=== PATIENT | female | born 1990 | race Caucasian/White ===

== ENCOUNTER 2016-07-23 20:11 | Emergency (ER) | payer OTHER ==
[2016-07-23 20:31] VITALS: BP 137/85; PULSE 108; RESP 20; TEMP 98
[2016-07-23] MEDS ORDERED: DIPH,PERTUS(ACELL)TETVAC-LF 0.5 ML VIAL IM ONE (20:39)
[2016-07-23] MEDS ORDERED: AMOXIC-POT CLAV 875-125MG 1 EACH TAB PO STA (20:39)
--- NOTE | 2016-07-23 20:45 | ED ---
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 Patient states she was bit by a cat that has not had rabies vaccine up-to-date in 2 years. Patient does state that they are having the cat quarantined. Patient states that she is not up-to-date on her tetanus vaccine. Patient denies any significant pain. Patient denies any bleeding. Patient denies any numbness or tingling going down her fingers. Patient denies any redness or swelling from a site. - Related Data Home Medications Medication Instructions Recorded Confirmed Aviane Control 1 tab PO DAILY 09/29/15 10/04/15 Citalopram Hydrobromide [CeleXA] 40 mg PO DAILY 09/29/15 10/04/15 diphenhydrAMINE HCL [Benadryl] 25 - 50 mg PO DAILY PRN 09/29/15 10/04/15 methylPREDNISolone [Medrol Dose 4 mg PO DIRECTED 10/04/15 10/04/15 Pack] Previous Rx's Medication Instructions Recorded Meclizine [Antivert] 25 mg PO TID PRN #20 tab 09/29/15 Ciprofloxacin HCl [Cipro] 500 mg PO Q12HR #14 tablet 10/04/15 Amoxicillin/Potassium Clav 1 each PO Q12HR #20 tab 07/23/16 [Augmentin 875-125 Tablet] Allergies Allergy/AdvReac Type Severity Reaction Status Date / Time sulfamethoxazole AdvReac Nausea & Verified 07/23/16 20:31 [From Bactrim] Vomiting & Diarrhea trimethoprim [From Bactrim] AdvReac Nausea & Verified 07/23/16 20:31 Vomiting & Diarrhea Review of Systems ROS Statement: Those systems with pertinent positive or pertinent negative responses have been documented in the HPI. ROS Other: All systems not noted in ROS Statement are negative. Past Medical History Additional Past Medical History / Comment(s): migraines History of Any Multi-Drug Resistant Organisms: None Reported Past Surgical History: No Surgical Hx Reported Past Psychological History: Depression Smoking Status: Current every day smoker Past Alcohol Use History: None Reported Past Drug Use History: None Reported General Exam - General Exam Comments Initial Comments: Sitting in exam room, no acute distress. Limitations: no limitations General appearance: alert, in no apparent distress Head exam: Present: atraumatic, normocephalic, normal inspection Eye exam: Present: normal appearance ENT exam: Present: normal exam Respiratory exam: Absent: respiratory distress Extremities exam: Present: normal inspection Back exam: Present: normal inspection Neurological exam: Present: alert, oriented X3, CN II-XII intact, normal gait Psychiatric exam: Present: normal affect, normal mood Skin exam: Present: warm, dry, other (2 parallel superficial excoriations over right forearm from cat bite.) Course Vital Signs 07/23/16 20:27 Temperature 98.0 F Pulse Rate 108 H Respiratory 20 Rate Blood Pressure 137/85 O2 Sat by Pulse 99 Oximetry Medical Decision Making - Medical Decision Making Patient is a 26-year-old female presents emergency room for evaluation of Light. Patient does state that is being quarantined and evaluated for any changes in behavior. Patient updated on her tetanus vaccine and started on Augmentin. Advised patient to follow-up with her primary care provider. Advised patient that if cat does begin having abnormal behavior, she will need rabies vaccine. Patient states she understands everything that was discussed with her. Return parameters discussed. Case discussed Dr. Ocampo. Disposition Clinical Impression: Cat bite Disposition: HOME SELF-CARE Condition: Good Instructions: Animal Bite (ED) Additional Instructions: Clean area with antibacterial soap and water daily. Take antibiotic as directed. Please follow-up with any abnormal activity from cat. Please follow up with primary care provider in 1-2 days. If any new symptom arises or symptoms worsen, return to ER as soon as possible. Prescriptions: Amoxicillin/Potassium Clav [Augmentin 875-125 Tablet] 1 each PO Q12HR #20 tab Referrals: Sebastián Ibrahim DO [Primary Care Provider] - 1-2 days Time of Disposition: 20:43
== END 2016-07-23 21:08 | disposition home or self-care (01) ==
LOC: EC 20:11
DX: S50.811A Abrasion of right forearm, initial encounter (principal); F32.9 Major depressive disorder, single episode, unspecified; F17.200 Nicotine dependence, unspecified, uncomplicated; Z23 Encounter for immunization; Z88.2 Allergy status to sulfonamides; Z79.899 Other long term (current) drug therapy; W55.01XA Bitten by cat, initial encounter; Z79.3 Long term (current) use of hormonal contraceptives; Y99.0 Civilian activity done for income or pay; Y93.89 Activity, other specified; Y92.69 Other specified industrial and construction area as the place of occurrence of the external cause
CPT/HCPCS: 90471; 90715; 99283

== ENCOUNTER → 2016-09-10 | Outpatient (CLI) | payer OTHER ==
--- NOTE | 2016-09-10 10:40 | US ---
EXAMINATION TYPE: US pelvic complete DATE OF EXAM: 09/10/2016 COMPARISON: NONE CLINICAL HISTORY: N91.0 Amenorrhea,R10.2 Pelvic pain,R10.3 Lower abd pain all per order. TECHNIQUE: Transabdominal (TA) Date of LMP: end may, no reason not to have cycles EXAM MEASUREMENTS: Uterus: 8.3 x 3.2 x 4.1 cm Endometrial Stripe: 1.2 cm Right Ovary: 2.9 x 2.9 x 2.1 cm Left Ovary: 2.9 x 2.8 x 1.7 cm 1. Uterus: Anteverted wnl 2. Endometrium: measures 1.2 cm, no cycles for 3 months 3. Right Ovary: wnl 4. Left Ovary: wnl 5. Bilateral Adnexa: wnl 6. Posterior cul-de-sac: no free fluid Uterus is anteverted in shape. Endometrium measures 9-12 mm in thickness. No free fluid is seen in pe lvis. Oval hypoechoic adnexal lesions favor normal ovaries bilaterally, no significant follicles or c ystic change however is identified IMPRESSION: Suspected ovaries are normal in size, no discrete follicles are clearly seen on transabdo lamine imaging otherwise unremarkable study.
== END | disposition home or self-care (01) ==
LOC: RADUSWWP 10:08
PROVIDERS: ATTEND Family Medicine
DX: N91.2 Amenorrhea, unspecified (principal); R10.2 Pelvic and perineal pain; R10.30 Lower abdominal pain, unspecified
CPT/HCPCS: 76856

== ENCOUNTER 2016-11-21 16:08 | Observation (INO) | payer OTHER ==
--- NOTE | 2016-11-21 16:04 | CT ---
EXAMINATION TYPE: CT abdomen pelvis w con DATE OF EXAM: 11/21/2016 HISTORY: Mid pelvic pain with nausea CT DLP: 1263mGycm Automated Exposure Control for Dose Reduction was Utilized. CONTRAST: CT scan of the abdomen and pelvis is performed with IV Contrast, patient injected with 100 mL of Omni paque 300. COMPARISON: None. FINDINGS: LUNG BASES: No significant abnormality is appreciated. LIVER/GB: No significant abnormality is appreciated. PANCREAS: No significant abnormality is seen. SPLEEN: No significant abnormality is seen. ADRENALS: No significant abnormality is seen. KIDNEYS: No significant abnormality is seen. BOWEL: Appendix is mildly enlarged with minimal periappendiceal fat stranding changes. Appendix measu res up to 7 mm and is not contrast filled although contrast is seen within the adjacent cecum. No nerissa ctive ileus or adjacent focal fluid collection is present. UTERUS/ADNEXA: Right ovary measures approximately 3.3 x 2.3 cm containing a crenulated appearing kelly nant follicle, likely relating to a resolving hemorrhagic cyst. Left ovary measures 1.9 x 1.8 cm. End ometrium is also prominent with a questionable posterior fundal leiomyoma. LYMPH NODES: No greater than 1cm abdominal or pelvic lymph nodes are appreciated. OSSEOUS STRUCTURES: No significant abnormality is seen. IMPRESSION: 1. Mild enlargement of the appendix, which does not fill with contrast which may represent early appe ndicitis. 2. Probable resolving right adnexal hemorrhagic cyst although the endometrium appears heterogenous. C orrelate with serum beta hCG to ensure this finding does not represent early intrauterine . A Red message has been communicated to Kelly English via the [facility] system on 11/21/2016 3:52 PM, Message ID [id number]. Findings were discussed directly with Kelly English's CHESTER Cueva by Dr. Andrew at 16:00 on 11/21/16. T he patient was sent to the ER.
[2016-11-21] MEDS ORDERED: ONDANSETRON 4 MG/2 ML VIAL IVP STA (16:36)
[2016-11-21] MEDS ORDERED: SODIUM CHLORIDE 0.9% 1,000 ML IV STA (16:36)
[2016-11-21] MEDS ORDERED: HYDROmorphone 1 MG/ML 1 ML SYRINGE IVP STA (16:36)
--- NOTE | 2016-11-21 16:40 | ED ---
General Adult HPI - General Chief complaint: Abdominal Pain Time Seen by Provider: 11/21/16 16:31 Source: patient, RN notes reviewed Mode of arrival: ambulatory Limitations: no limitations - History of Present Illness Initial comments: Patient is a 26-year-old female who presents emergency room today with a chief complaint of having a positive CT for appendicitis. She states that she's been experiencing some lower abdominal pain for the last 3 days and had a CAT scan done outpatient. Assessment to some nausea at times. She denies any other complaints or associated symptoms. Patient denies any recent fever, chills, shortness of breath, chest pain, back pain, vomiting, numbness or tingling, dysuria or hematuria, constipation or diarrhea, headaches or visual changes, or any other complaints. - Related Data Home Medications Medication Instructions Recorded Confirmed diphenhydrAMINE HCL [Benadryl] 25 - 50 mg PO DAILY PRN 09/29/15 11/21/16 Acetaminophen Tab [Tylenol Tab] 1,000 mg PO Q6HR PRN 11/21/16 11/21/16 Citalopram Hydrobromide [CeleXA] 20 mg PO DAILY 11/21/16 11/21/16 Ibuprofen [Motrin] 400 mg PO Q6HR PRN 11/21/16 11/21/16 Allergies Allergy/AdvReac Type Severity Reaction Status Date / Time sulfamethoxazole AdvReac Nausea & Verified 11/21/16 17:33 [From Bactrim] Vomiting & Diarrhea trimethoprim [From Bactrim] AdvReac Nausea & Verified 11/21/16 17:33 Vomiting & Diarrhea Review of Systems ROS Statement: Those systems with pertinent positive or pertinent negative responses have been documented in the HPI. ROS Other: All systems not noted in ROS Statement are negative. Past Medical History Additional Past Medical History / Comment(s): migraines History of Any Multi-Drug Resistant Organisms: None Reported Past Surgical History: No Surgical Hx Reported Past Psychological History: Depression Smoking Status: Former smoker Past Alcohol Use History: Occasional Past Drug Use History: None Reported General Exam - General Exam Comments Initial Comments: General: The patient is awake and alert, in no distress, and does not appear acutely ill. Eye: Pupils are equal, round and reactive to light, extra-ocular movements are intact. No nystagmus. There is normal conjunctiva bilaterally. No signs of icterus. Ears, nose, mouth and throat: There are moist mucous membranes and no oral lesions. Neck: The neck is supple, there is no tenderness or JVD. Cardiovascular: There is a regular rate and rhythm. No murmur, rub or gallop is appreciated. Respiratory: Lungs are clear to auscultation, respirations are non-labored, breath sounds are equal. No wheezes, stridor, rales, or rhonchi. Gastrointestinal: Normal appearance abdomen. Normal bowel sounds. Abdomen soft on palpation. Patient does have tenderness periumbilical and right lower quadrant. No rebound tenderness. No Guarding. No CVA tenderness. Musculoskeletal: Normal ROM, no tenderness. Strength 5/5. Sensation intact. Pulses equal bilaterally 2+. Neurological: A&O x 3. CN II-XII intact, There are no obvious motor or sensory deficits. Coordination appears grossly intact. Speech is normal. Skin: Skin is warm and dry and no rashes or lesions are noted. Psychiatric: Cooperative, appropriate mood & affect, normal judgment. Limitations: no limitations Course Vital Signs 11/21/16 16:26 Temperature 98.4 F Pulse Rate 94 Respiratory 18 Rate Blood Pressure 133/83 O2 Sat by Pulse 98 Oximetry Medical Decision Making - Medical Decision Making CT shows evidence for early appendicitis. Patient will be admitted. Case was discussed with attending physician Dr. Ocampo. Patient at bedside and discussed with admitting physician Dr. Woodson. - Lab Data Result diagrams: 11/21/16 16:40 11/21/16 16:40 Lab Results 11/21/16 11/21/16 11/21/16 Range/Units 16:40 16:40 16:40 WBC 10.1 (3.8-10.6) k/uL RBC 4.74 (3.80-5.40) m/uL Hgb 14.7 (11.4-16.0) gm/dL Hct 44.2 (34.0-46.0) % MCV 93.3 (80.0-100.0) fL MCH 30.9 (25.0-35.0) pg MCHC 33.1 (31.0-37.0) g/dL RDW 14.1 (11.5-15.5) % Plt Count 240 (150-450) k/uL Neutrophils % 61 % Lymphocytes % 27 % Monocytes % 6 % Eosinophils % 3 % Basophils % 1 % Neutrophils # 6.2 (1.3-7.7) k/uL Lymphocytes # 2.7 (1.0-4.8) k/uL Monocytes # 0.6 (0-1.0) k/uL Eosinophils # 0.3 (0-0.7) k/uL Basophils # 0.1 (0-0.2) k/uL Sodium 137 (137-145) mmol/L Potassium 4.4 (3.5-5.1) mmol/L Chloride 104 (98-107) mmol/L Carbon Dioxide 23 (22-30) mmol/L Anion Gap 10 mmol/L BUN 7 (7-17) mg/dL Creatinine 0.80 (0.52-1.04) mg/dL Est GFR (MDRD) Af Amer >60 (>60 ml/min/1.73 sqM) Est GFR (MDRD) Non-Af >60 (>60 ml/min/1.73 sqM) Glucose 91 (74-99) mg/dL Calcium 9.7 (8.4-10.2) mg/dL Total Bilirubin 0.2 (0.2-1.3) mg/dL AST 40 H (14-36) U/L ALT 107 H (9-52) U/L Alkaline Phosphatase 94 (38-126) U/L Total Protein 7.1 (6.3-8.2) g/dL Albumin 4.3 (3.5-5.0) g/dL HCG, Qual Not Detected Urine Color Urine Appearance (Clear) Urine pH (5.0-8.0) Ur Specific [place] (1.001-1.035) Urine Protein (Negative) Urine Glucose (UA) (Negative) Urine Ketones (Negative) Urine Blood (Negative) Urine Nitrite (Negative) Urine Bilirubin (Negative) Urine Urobilinogen (<2.0) mg/dL Ur Leukocyte Esterase (Negative) 11/21/16 Range/Units 17:54 WBC (3.8-10.6) k/uL RBC (3.80-5.40) m/uL Hgb (11.4-16.0) gm/dL Hct (34.0-46.0) % MCV (80.0-100.0) fL MCH (25.0-35.0) pg MCHC (31.0-37.0) g/dL RDW (11.5-15.5) % Plt Count (150-450) k/uL Neutrophils % % Lymphocytes % % Monocytes % % Eosinophils % % Basophils % % Neutrophils # (1.3-7.7) k/uL Lymphocytes # (1.0-4.8) k/uL Monocytes # (0-1.0) k/uL Eosinophils # (0-0.7) k/uL Basophils # (0-0.2) k/uL Sodium (137-145) mmol/L Potassium (3.5-5.1) mmol/L Chloride (98-107) mmol/L Carbon Dioxide (22-30) mmol/L Anion Gap mmol/L BUN (7-17) mg/dL Creatinine (0.52-1.04) mg/dL Est GFR (MDRD) Af Amer (>60 ml/min/1.73 sqM) Est GFR (MDRD) Non-Af (>60 ml/min/1.73 sqM) Glucose (74-99) mg/dL Calcium (8.4-10.2) mg/dL Total Bilirubin (0.2-1.3) mg/dL AST (14-36) U/L ALT (9-52) U/L Alkaline Phosphatase (38-126) U/L Total Protein (6.3-8.2) g/dL Albumin (3.5-5.0) g/dL HCG, Qual Urine Color Colorless Urine Appearance Clear (Clear) Urine pH 6.5 (5.0-8.0) Ur Specific [place] 1.032 (1.001-1.035) Urine Protein Negative (Negative) Urine Glucose (UA) Negative (Negative) Urine Ketones Negative (Negative) Urine Blood Negative (Negative) Urine Nitrite Negative (Negative) Urine Bilirubin Negative (Negative) Urine Urobilinogen <2.0 (<2.0) mg/dL Ur Leukocyte Esterase Negative (Negative) Disposition Clinical Impression: Acute appendicitis Disposition: ADMITTED IP TO THIS HOSP Condition: Stable Referrals: Sebastián Ibrahim DO [Primary Care Provider] - 1-2 days Time of Disposition: 18:28
[2016-11-21 16:56] LABS: Basophils # (A) 0.1 k/uL (0-0.2); Basophils % (A) 1 %; CH 32.1; CHCM 34.6; Eosinophils # (A) 0.3 k/uL (0-0.7); Eosinophils % (A) 3 %; HCT 44.2 % (34.0-46.0); HDW 2.31; HGB 14.7 gm/dL (11.4-16.0); Luc % (Auto) 2; Lymphocytes # (A) 2.7 k/uL (1.0-4.8); Lymphocytes % (A) 27 %; MCH 30.9 pg (25.0-35.0); MCHC 33.1 g/dL (31.0-37.0); MCV 93.3 fL (80.0-100.0); Mean Platelet Volume 7.9; Monocytes # (A) 0.6 k/uL (0-1.0); Monocytes % (A) 6 %; Neutrophils # (A) 6.2 k/uL (1.3-7.7); Neutrophils % (A) 61 %; RBC 4.74 m/uL (3.80-5.40); RDW 14.1 % (11.5-15.5); WBC 10.1 k/uL (3.8-10.6); WBC (Perox) 9.97
[2016-11-21 17:04] LABS: ALT 107 U/L (9-52); AST 40 U/L (14-36); Alkaline Phosphatase 94 U/L (38-126); Anion Gap 10 mmol/L; Blood Urea Nitrogen 7 mg/dL (7-17); Calcium 9.7 mg/dL (8.4-10.2); Carbon Dioxide 23 mmol/L (22-30); Chloride 104 mmol/L (98-107); Glucose 91 mg/dL (74-99); Non-African American GFR(MDRD) >60 (>60 ml/min/1.73 sqM); Potassium 4.4 mmol/L (3.5-5.1); Sodium 137 mmol/L (137-145); Total Bilirubin 0.2 mg/dL (0.2-1.3); Total Protein 7.1 g/dL (6.3-8.2)
[2016-11-21 18:04] LABS: Appearance,Urine Clear (Clear); Bilirubin,Urine Negative (Negative); Glucose,Urine (UA) Negative (Negative); Ketones,Urine Negative (Negative); Leukocyte Esterase,Urine Negative (Negative); Nitrite,Urine Negative (Negative); PH, Urine 6.5 (5.0-8.0); Protein,Urine Negative (Negative); Specific Gravity,Urine 1.032 (1.001-1.035); UA Billing (MACRO vs. MICRO) CHEM; Urobilinogen,Urine <2.0 mg/dL (<2.0)
[2016-11-21] MEDS ORDERED: HYDROmorphone 1 MG/ML 1 ML SYRINGE IV PRN (18:29)
[2016-11-21] MEDS ORDERED: ONDANSETRON 4 MG/2 ML VIAL IVP PRN (18:29)
[2016-11-21] MEDS ORDERED: NALOXONE 0.4 MG/ML 1 ML VIAL IV PRN ×2 (18:29→22:29)
--- NOTE | 2016-11-21 20:02 | P.GSHP ---
History of Present Illness H&P Date: 11/21/16 Chief Complaint: Right lower quadrant abdominal pain A 26-year-old female presents to the emergency department complaining of abdominal pain. She states that the pain started in the periumbilical area and has moved to her right lower quadrant. She states this started about a day and a half ago. She states that she has had decreased appetite and has had some nausea. She denies any vomiting. She denies any change in bowel function. She states she has never had this pain previously. She denies fevers, chills, chest pain or shortness of breath. She currently has no additional complaints. - Gastrointestinal Gastrointestinal: Reports abdominal pain, Reports nausea Past Medical History Additional Past Medical History / Comment(s): migraines History of Any Multi-Drug Resistant Organisms: None Reported Past Surgical History: No Surgical Hx Reported Past Psychological History: Depression Smoking Status: Former smoker Past Alcohol Use History: Occasional Past Drug Use History: None Reported Medications and Allergies Home Medications Medication Instructions Recorded Confirmed Type diphenhydrAMINE HCL [Benadryl] 25 - 50 mg PO DAILY PRN 09/29/15 11/21/16 History Acetaminophen Tab [Tylenol Tab] 1,000 mg PO Q6HR PRN 11/21/16 11/21/16 History Citalopram Hydrobromide [CeleXA] 20 mg PO DAILY 11/21/16 11/21/16 History Ibuprofen [Motrin] 400 mg PO Q6HR PRN 11/21/16 11/21/16 History Allergies Allergy/AdvReac Type Severity Reaction Status Date / Time sulfamethoxazole AdvReac Nausea & Verified 11/21/16 17:33 [From Bactrim] Vomiting & Diarrhea trimethoprim [From Bactrim] AdvReac Nausea & Verified 11/21/16 17:33 Vomiting & Diarrhea Surgical - Exam Osteopathic Statement: *. No significant issues noted on an osteopathic structural exam other than those noted in the History and Physical/Consult. Vital Signs Temp Pulse Resp BP Pulse Ox 98.4 F 94 18 133/83 98 11/21/16 16:26 11/21/16 16:26 11/21/16 16:26 11/21/16 16:26 11/21/16 16:26 - General well developed, no distress - Eyes PERRL, normal ocular movement - ENT normal mucosa, no hearing loss - Neck no masses, no bruits, trachea midline, no lymphadectomy - Respiratory normal respiratory effort - Cardiovascular Rhythm: regular Heart Sounds: normal: S1, S2 - Abdomen Abdomen: soft, tender, no guarding, no rigid, no rebound, no distended - Integumentary no rash - Neurologic normal coordination, normal sensation - Musculoskeletal normal gait, normal posture - Psychiatric oriented to time, oriented to person, oriented to place Results - Labs 11/21/16 16:40 11/21/16 16:40 Abnormal Lab Results - Last 24 Hours (Table) 11/21/16 Range/Units 16:40 AST 40 H (14-36) U/L ALT 107 H (9-52) U/L Diabetes panel 11/21/16 Range/Units 16:40 Sodium 137 (137-145) mmol/L Potassium 4.4 (3.5-5.1) mmol/L Chloride 104 (98-107) mmol/L Carbon Dioxide 23 (22-30) mmol/L BUN 7 (7-17) mg/dL Creatinine 0.80 (0.52-1.04) mg/dL Glucose 91 (74-99) mg/dL Calcium 9.7 (8.4-10.2) mg/dL AST 40 H (14-36) U/L ALT 107 H (9-52) U/L Alkaline Phosphatase 94 (38-126) U/L Total Protein 7.1 (6.3-8.2) g/dL Albumin 4.3 (3.5-5.0) g/dL Calcium panel 11/21/16 Range/Units 16:40 Calcium 9.7 (8.4-10.2) mg/dL Albumin 4.3 (3.5-5.0) g/dL Pituitary panel 11/21/16 Range/Units 16:40 Sodium 137 (137-145) mmol/L Potassium 4.4 (3.5-5.1) mmol/L Chloride 104 (98-107) mmol/L Carbon Dioxide 23 (22-30) mmol/L BUN 7 (7-17) mg/dL Creatinine 0.80 (0.52-1.04) mg/dL Glucose 91 (74-99) mg/dL Calcium 9.7 (8.4-10.2) mg/dL Adrenal panel 11/21/16 Range/Units 16:40 Sodium 137 (137-145) mmol/L Potassium 4.4 (3.5-5.1) mmol/L Chloride 104 (98-107) mmol/L Carbon Dioxide 23 (22-30) mmol/L BUN 7 (7-17) mg/dL Creatinine 0.80 (0.52-1.04) mg/dL Glucose 91 (74-99) mg/dL Calcium 9.7 (8.4-10.2) mg/dL Total Bilirubin 0.2 (0.2-1.3) mg/dL AST 40 H (14-36) U/L ALT 107 H (9-52) U/L Alkaline Phosphatase 94 (38-126) U/L Total Protein 7.1 (6.3-8.2) g/dL Albumin 4.3 (3.5-5.0) g/dL - Imaging CT scan - abdomen: report reviewed (Early Appendicitis and questionable hemorrhagic cysts rupture of the ovary) Assessment and Plan (1) Acute appendicitis Status: Acute Plan: 26-year-old female with acute appendicitis - Plan for or for laparoscopic appendectomy - Will provide perioperative antibiotics - Pain control - Keep nothing by mouth at this time - Admitted to my service - Further recommendations after surgery
[2016-11-21] MEDS ORDERED: IV FLUID CONTINUATION 1,000 ML IV ONE (20:11)
[2016-11-21] MEDS ORDERED: MIDAZOLAM 2 MG/2 ML VIAL ONE (20:14)
[2016-11-21] MEDS ORDERED: GLYCOPYRROLATE 0.2 MG/ML 2 ML VIAL ONE (20:14)
[2016-11-21] MEDS ORDERED: NEOSTIGMINE 1 MG/ML 10 ML VIAL ONE (20:14)
[2016-11-21] MEDS ORDERED: fentaNYL (PF) 50 MCG/ML 2 ML AMP ONE (20:14)
[2016-11-21] MEDS ORDERED: ROCURONIUM BROMIDE 10 MG/ML 10 ML VIAL IV ONE (20:14)
[2016-11-21] MEDS ORDERED: ONDANSETRON 4 MG/2 ML VIAL ONE (20:14)
[2016-11-21] MEDS ORDERED: LIDOCAINE 1% INJ 10MG/ML (20 ML MDV) ONE (20:14)
[2016-11-21] MEDS ORDERED: HYDROmorphone (PF) 1 MG/ML ONE (20:14)
[2016-11-21] MEDS ORDERED: SUCCINYLCHOLINE CHLORIDE 100 MG/5 ML SYR IV ONE (20:14)
[2016-11-21] MEDS ORDERED: PROPOFOL 10 MG/ML 20 ML VIAL IV ONE (20:14)
[2016-11-21] MEDS: metroNIDAZOLE-NS PMX 500 MG in SALINE 1 100ML.BAG IVPB SCH (20:30)
[2016-11-21] MEDS ORDERED: BUPIVACAINE (PF) 0.25% 30 ML VIAL SQ ONE ×2 (20:31)
[2016-11-21] MEDS ORDERED: LACTATED RINGERS 1,000 ML IV ONE ×2 (20:52→22:29)
[2016-11-21] MEDS ORDERED: PROMETHAZINE INJ 25 MG/ML 1 ML VIAL IVPB ONE (21:19)
--- NOTE | 2016-11-21 21:22 | P.OP ---
Date of Procedure: 11/21/16 Preoperative Diagnosis: Acute appendicitis Postoperative Diagnosis: Acute appendicitis Procedure(s) Performed: Laparoscopic appendectomy Anesthesia: DELONTE Surgeon: Maia Woodson Estimated Blood Loss (ml): 5 Pathology: other (Appendix) Condition: stable Disposition: observation Indications for Procedure: 26-year-old female presented to the emergency department complaining of abdominal pain that began in her periumbilical area and shifted to her right lower quadrant. On workup computed tomography scan showed a early appendicitis with a possible ovarian cyst rupture. Secondary to these findings. The patient was explained a procedure for laparoscopic appendectomy. The patient was explained the risks, benefits, alternatives to the procedure. She provided consent prior to attending the operating suite Operative Findings: Inflamed appendix and hemorrhagic fluid within the pelvis Description of Procedure: The patient was brought into the operating suite placed in supine position on the operating table. Sedation was provided by anesthesia and the patient underwent endotracheal intubation. The patient was then prepped and draped in regular sterile fashion. A supraumbilical incision was made dissection was carried to the fascia the fascia was incised and a 15 mm trocar was placed. Pneumoperitoneum was then achieved. At this point an additional 5 mm port was placed in the left lower quadrant and the subxiphoid position. The patient was then placed in position and the appendix was visible. The appendix was clearly inflamed. A window was created between the mesoappendix and the base of the appendix. A LigaSure device was used to dissect the mesoappendix from the appendix. A 45 mm purple load Covidien Endo CECILIA stapler was then fired across the base of the appendix. The appendix was then placed in a Endo Catch bag and removed from the abdomen. Examination was then made in the pelvis and hemorrhagic fluid was noted. Irrigation was then placed within the pelvis and suctioned free. The appendiceal staple line was then reexamined and hemostasis was noted to be maintained. A Jose G-Carlos device was used to close the 15 mm trocar site with an 0 Vicryl suture. Pneumoperitoneum was then released all trochars removed from the abdomen and all skin incisions were closed with 40 Caprosyn suture. Dermabond was placed. The patient was awakened in the operating suite and taken to postanesthesia care unit in stable condition.
[2016-11-21] MEDS ORDERED: METOCLOPRAMIDE 5 MG/ML 2 ML VIAL IVP ONE (21:23)
[2016-11-21] MEDS: HYDROmorphone 1 MG/ML 1 ML SYRINGE IVP ONE ×2 (21:33→21:38)
[2016-11-21] MEDS ORDERED: KETOROLAC 30 MG/ML 1 ML VIAL IVP ONE (21:33)
[2016-11-21] MEDS ORDERED: HYDROcodone/APAP 5-325MG 1 EACH TAB PO PRN (22:29)
[2016-11-22] MEDS: HYDROmorphone 1 MG/ML 1 ML SYRINGE IVP PRN ×2 (02:13→06:25)
[2016-11-22 07:51] LABS: Basophils # (A) 0.1 k/uL (0-0.2); Basophils % (A) 1 %; CH 31.8; CHCM 33.4; Eosinophils # (A) 0.2 k/uL (0-0.7); Eosinophils % (A) 2 %; HCT 43.5 % (34.0-46.0); HDW 2.29; HGB 13.9 gm/dL (11.4-16.0); Luc # (Auto) 0.15; Luc % (Auto) 2; Lymphocytes # (A) 2.6 k/uL (1.0-4.8); Lymphocytes % (A) 27 %; MCH 30.7 pg (25.0-35.0); MCHC 32.1 g/dL (31.0-37.0); MCV 95.7 fL (80.0-100.0); Mean Platelet Volume 8.2; Monocytes # (A) 0.7 k/uL (0-1.0); Monocytes % (A) 7 %; Neutrophils % (A) 62 %; RBC 4.55 m/uL (3.80-5.40); RDW 13.5 % (11.5-15.5); WBC 9.7 k/uL (3.8-10.6); WBC (Perox) 9.34
[2016-11-22] MEDS: metroNIDAZOLE-NS PMX 500 MG in SALINE 1 100ML.BAG IVPB SCH (07:58)
[2016-11-22 08:11] LABS: Anion Gap 8 mmol/L; Blood Urea Nitrogen 6 mg/dL (7-17); Calcium 8.5 mg/dL (8.4-10.2); Carbon Dioxide 23 mmol/L (22-30); Chloride 107 mmol/L (98-107); Glucose 82 mg/dL (74-99); Non-African American GFR(MDRD) >60 (>60 ml/min/1.73 sqM); Potassium 3.8 mmol/L (3.5-5.1); Sodium 138 mmol/L (137-145)
[2016-11-22] MEDS ORDERED: FAMOTIDINE 20 MG TAB PO SCH (09:00)
[2016-11-22] MEDS ORDERED: DOCUSATE 100 MG CAP PO SCH (09:00)
--- NOTE | 2016-11-22 11:52 | P.DS ---
Providers Date of admission: 11/21/16 19:29 Expected date of discharge: 11/22/16 Attending physician: Maia Woodson DO [facility] Course: 26-year-old presented to the emergency room on the day of admission to be evaluated for right lower quadrant abdominal pain. Patient stated the pain started in the Umbilical area radiated to the right lower quadrant. Patient stated the onset of the pain was a day and a half prior. Patient stated she had decreased appetite felt nauseated did not actually vomit. Patient stated that she did have a bowel movement on the day of admission to the emergency room. Patient states she had not had any prior episodes of similar abdominal pain patient was admitted to surgical service. The emergency room patient did have a computed tomography scan of the abdomen pelvis it did show early appendicitis possible ovarian cyst rupture. Surgical service advised the patient to proceed with a laparoscopic appendectomy in which the patient elected to proceed. on November 21 patient underwent a left scapular appendectomy for acute appendicitis. Operative findings showed inflamed appendix and hemorrhagic fluid within the pelvis . There were no postop complications. On the day of discharge patient was able to ambulate in the hallway tolerated diet afebrile the white count on discharge was 9.7 hemoglobin 13.9 electrolytes within normal limits as was felt to be hemodynamically stable and appropriate proceed with a discharge to home Impression discharge diagnoses Present on admission umbilical area pain radiating to the right lower quadrant suspect due to acute appendicitis CAT scan abdomen and pelvis suspected early appendicitis possible ovarian cyst rupture Status post November 21 laparoscopic appendectomy for acute appendicitis Operative findings inflamed appendix and hemorrhagic fluid within the pelvis The above impression and plan of care have been discussed and directed by signing physician. Trinidad Navarrete nurse practitioner acting as scribe for signing physician. Patient Condition at Discharge: Stable Plan - Discharge Summary New Discharge Prescriptions: New HYDROcodone/APAP 5-325MG [[place] 5-325] 1 tab PO Q4HR PRN #15 tab PRN Reason: Muscle Pain Docusate [Colace] 100 mg PO DAILY PRN #30 capsule PRN Reason: Constipation Continue diphenhydrAMINE HCL [Benadryl] 25 - 50 mg PO DAILY PRN PRN Reason: Allergy Symptoms Ibuprofen [Motrin] 400 mg PO Q6HR PRN PRN Reason: Pain Or Fever > 100.5 Acetaminophen Tab [Tylenol] 1,000 mg PO Q6HR PRN PRN Reason: Pain Or Fever > 100.5 Citalopram Hydrobromide [CeleXA] 20 mg PO DAILY Discharge Medication List diphenhydrAMINE HCL [Benadryl] 25 - 50 mg PO DAILY PRN 09/29/15 [History] Acetaminophen Tab [Tylenol] 1,000 mg PO Q6HR PRN 11/21/16 [History] Citalopram Hydrobromide [CeleXA] 20 mg PO DAILY 11/21/16 [History] Ibuprofen [Motrin] 400 mg PO Q6HR PRN 11/21/16 [History] Docusate [Colace] 100 mg PO DAILY PRN #30 capsule 11/22/16 [Rx] HYDROcodone/APAP 5-325MG [[place] 5-325] 1 tab PO Q4HR PRN #15 tab 11/22/16 [Rx] Follow up Appointment(s)/Referral(s): Sebastián Ibrahim DO [Primary Care Provider] - 1-2 days Activity/Diet/Wound Care/Special Instructions: No lifting heavier than a milk jug No tub bath Shower daily Notified the attending of any fever chills abdominal pain nausea vomiting Return to work after seen in a follow-up visit with surgical service Discharge Disposition: HOME SELF-CARE
[2016-11-22 11:53] VITALS: BP 109/65; PULSE 98; RESP 18; TEMP 98.2
[2016-11-22] MEDS ORDERED: metroNIDAZOLE 500 MG TAB PO SCH (16:00)
== END 2016-11-22 14:58 | disposition home or self-care (01) ==
LOC: EC 16:08 → 6PED 19:29
PROVIDERS: ADMIT Surgery; ATTEND Surgery
DX: K35.80 Unspecified acute appendicitis (principal); F32.9 Major depressive disorder, single episode, unspecified; R10.31 Right lower quadrant pain; Z79.899 Other long term (current) drug therapy; Z88.1 Allergy status to other antibiotic agents; Z88.2 Allergy status to sulfonamides; Z87.891 Personal history of nicotine dependence
CPT/HCPCS: 36415; 74177; 80048; 80053; 81003; 84703; 85025; 88304; 96361; 96374; 96375; 99285

== ENCOUNTER → 2016-11-21 | Outpatient (CLI) | payer OTHER ==
--- NOTE | 2016-11-21 11:48 | XR ---
EXAMINATION TYPE: XR abdomen 2V DATE OF EXAM: 11/21/2016 11:27 AM CLINICAL HISTORY: Abdominal pain for 3 days TECHNIQUE: Single supine KUB image of the abdomen is obtained. COMPARISON: None. FINDINGS: Single mildly enlarged loop of small bowel seen within the left mid abdomen. Remainder the bowel is unremarkable with no differential air-fluid levels. Moderate amount of stool seen throughout the ascending colon and hepatic flexure as well as within the rectum. There is no visceromegaly, pneumoperitoneum, or abnormal calcification appreciated. The lung bases ar e clear and the osseous structures are intact. IMPRESSION: Single mildly enlarged loop of small bowel which may relate to ileus. Moderate amount of retained sto ol within the ascending colon, hepatic flexure and rectum.
== END | disposition home or self-care (01) ==
LOC: RADXRYALE 11:11
PROVIDERS: ATTEND Physician Assistant Medical
DX: K63.89 Other specified diseases of intestine (principal); K56.41 Fecal impaction
CPT/HCPCS: 74020

== ENCOUNTER 2016-12-06 17:13 | Emergency (ER) | payer OTHER ==
[2016-12-06 17:29] VITALS: TEMP 97.6
[2016-12-06] MEDS ORDERED: SODIUM CHLORIDE 0.9% 1,000 ML IV ONE (17:53)
[2016-12-06] MEDS ORDERED: ONDANSETRON 4 MG/2 ML VIAL IVP STA (17:53)
[2016-12-06] MEDS ORDERED: HYDROmorphone 1 MG/ML 1 ML SYRINGE IVP STA (17:53)
--- NOTE | 2016-12-06 17:54 | ED ---
Abdominal Pain HPI - General Chief Complaint: Abdominal Pain Stated Complaint: abd pain/N & V Time Seen by Provider: 12/06/16 17:31 Source: patient Mode of arrival: ambulatory Limitations: no limitations - History of Present Illness Initial Comments: 26-year-old female patient presents to emergency department today with complaints of periumbilical abdominal pain. Patient is status post appendectomy and 11/21/[address] Woodson. She states that she had her one- week postop appointments and was doing well, states that she was cleared to return to work. States that she did go to work Friday, Friday, and Friday on light duty. She states that yesterday she began to have pain surrounding her umbilical incision. She states that today the pain has worsened and she has developed nausea and vomiting. Patient states she has vomited 3-4 times. She states that the pain is sharp and stabbing and radiates through to her back. She denies any fever or chills with this. She states she is having normal bowel movements, she denies any hematochezia or melena. She denies any hematuria, dysuria, urinary frequency, or urinary urgency. Patient denies any recent rash, shortness breath, chest pain, diarrhea, constipation, back pain, numbness, tingling, dizziness, weakness, hematuria, dysuria, urinary urgency, urinary frequency, headache, visual changes, or any other complaints. - Related Data Home Medications Medication Instructions Recorded Confirmed diphenhydrAMINE HCL [Benadryl] 25 mg PO DAILY PRN 09/29/15 12/06/16 Ibuprofen [Motrin] 400 mg PO Q6HR PRN 11/21/16 12/06/16 Citalopram Hydrobromide [CeleXA] 40 mg PO DAILY 12/06/16 12/06/16 Previous Rx's Medication Instructions Recorded Ondansetron [Zofran ODT] 4 mg PO Q8HR PRN #10 tab 12/06/16 Allergies Allergy/AdvReac Type Severity Reaction Status Date / Time sulfamethoxazole AdvReac Nausea & Verified 12/06/16 17:53 [From Bactrim] Vomiting & Diarrhea trimethoprim [From Bactrim] AdvReac Nausea & Verified 12/06/16 17:53 Vomiting & Diarrhea Review of Systems ROS Statement: Those systems with pertinent positive or pertinent negative responses have been documented in the HPI. ROS Other: All systems not noted in ROS Statement are negative. Past Medical History Additional Past Medical History / Comment(s): migraines History of Any Multi-Drug Resistant Organisms: MRSA Date of last positivie culture/infection: 2012 MDRO Source:: bilateral inner thighs Past Surgical History: Adenoidectomy Past Anesthesia/Blood Transfusion Reactions: No Reported Reaction Past Psychological History: Depression Smoking Status: Former smoker Past Alcohol Use History: Occasional Past Drug Use History: None Reported - Past Family History Mother Family Medical History: No Reported History General Exam Limitations: no limitations General appearance: alert, in no apparent distress, other (this is a well- developed, well-nourished adult female patient of acute distress. Vital signs upon presentation are temperature 97.6F, pulse 97, respirations 18, blood pressure 136/84, pulse ox 100% on room air.) Eye exam: Present: normal appearance, PERRL, EOMI. Absent: scleral icterus, conjunctival injection, periorbital swelling Respiratory exam: Present: normal lung sounds bilaterally. Absent: respiratory distress, wheezes, rales, rhonchi, stridor Cardiovascular Exam: Present: regular rate, normal rhythm, normal heart sounds. Absent: systolic murmur, diastolic murmur, rubs, gallop, clicks GI/Abdominal exam: Present: soft, tenderness (Generalized abdominal tenderness, worse in the right lower quadrant, periumbilically, and left lower quadrant.), guarding, normal bowel sounds. Absent: distended, rebound, rigid Back exam: Present: normal inspection. Absent: CVA tenderness (R), CVA tenderness (L) Neurological exam: Present: alert, oriented X3, CN II-XII intact Psychiatric exam: Present: normal affect, normal mood Skin exam: Present: warm, dry, intact, normal color. Absent: rash Course Vital Signs 12/06/16 17:25 Temperature 97.6 F Pulse Rate 97 Respiratory 18 Rate Blood Pressure 136/84 O2 Sat by Pulse 100 Oximetry Medical Decision Making - Medical Decision Making 26-year-old female patient presented to emergency department today for evaluation of periumbilical abdominal pain, patient is status post appendectomy on 11/21/2016. Physical exam did reveal some mild diffuse abdominal tenderness. CT of the abdomen and pelvis was negative for any acute process. Patient is feeling better after receiving some nausea medication and pain medication here in the department. Labs are overall unremarkable. She will be discharged home to follow-up with her surgeon in the next 1-2 days. She is instructed to return here immediately for any new, worsening, or concerning symptoms. She verbalizes understanding and agrees with this plan. - Lab Data Result diagrams: 12/06/16 18:15 12/06/16 18:15 Lab Results 12/06/16 12/06/16 12/06/16 Range/Units 18:15 18:15 18:15 WBC 10.0 (3.8-10.6) k/uL RBC 4.43 (3.80-5.40) m/uL Hgb 13.8 (11.4-16.0) gm/dL Hct 41.4 (34.0-46.0) % MCV 93.6 (80.0-100.0) fL MCH 31.3 (25.0-35.0) pg MCHC 33.4 (31.0-37.0) g/dL RDW 13.6 (11.5-15.5) % Plt Count 267 (150-450) k/uL Neutrophils % 57 % Lymphocytes % 30 % Monocytes % 5 % Eosinophils % 6 % Basophils % 1 % Neutrophils # 5.6 (1.3-7.7) k/uL Lymphocytes # 3.0 (1.0-4.8) k/uL Monocytes # 0.5 (0-1.0) k/uL Eosinophils # 0.6 (0-0.7) k/uL Basophils # 0.1 (0-0.2) k/uL Sodium 138 (137-145) mmol/L Potassium 4.6 (3.5-5.1) mmol/L Chloride 104 (98-107) mmol/L Carbon Dioxide 22 (22-30) mmol/L Anion Gap 12 mmol/L BUN 15 (7-17) mg/dL Creatinine 0.70 (0.52-1.04) mg/dL Est GFR (MDRD) Af Amer >60 (>60 ml/min/1.73 sqM) Est GFR (MDRD) Non-Af >60 (>60 ml/min/1.73 sqM) Glucose 98 (74-99) mg/dL Plasma Lactic Acid Rishi 1.1 (0.7-2.0) mmol/L Calcium 9.9 (8.4-10.2) mg/dL Total Bilirubin 0.5 (0.2-1.3) mg/dL AST 42 H (14-36) U/L ALT 182 H (9-52) U/L Alkaline Phosphatase 196 H (38-126) U/L Total Protein 8.0 (6.3-8.2) g/dL Albumin 4.6 (3.5-5.0) g/dL Amylase 56 (30-110) U/L Lipase 99 (23-300) U/L Urine Color Urine Appearance (Clear) Urine pH (5.0-8.0) Ur Specific [place] (1.001-1.035) Urine Protein (Negative) Urine Glucose (UA) (Negative) Urine Ketones (Negative) Urine Blood (Negative) Urine Nitrite (Negative) Urine Bilirubin (Negative) Urine Urobilinogen (<2.0) mg/dL Ur Leukocyte Esterase (Negative) 12/06/16 Range/Units 18:20 WBC (3.8-10.6) k/uL RBC (3.80-5.40) m/uL Hgb (11.4-16.0) gm/dL Hct (34.0-46.0) % MCV (80.0-100.0) fL MCH (25.0-35.0) pg MCHC (31.0-37.0) g/dL RDW (11.5-15.5) % Plt Count (150-450) k/uL Neutrophils % % Lymphocytes % % Monocytes % % Eosinophils % % Basophils % % Neutrophils # (1.3-7.7) k/uL Lymphocytes # (1.0-4.8) k/uL Monocytes # (0-1.0) k/uL Eosinophils # (0-0.7) k/uL Basophils # (0-0.2) k/uL Sodium (137-145) mmol/L Potassium (3.5-5.1) mmol/L Chloride (98-107) mmol/L Carbon Dioxide (22-30) mmol/L Anion Gap mmol/L BUN (7-17) mg/dL Creatinine (0.52-1.04) mg/dL Est GFR (MDRD) Af Amer (>60 ml/min/1.73 sqM) Est GFR (MDRD) Non-Af (>60 ml/min/1.73 sqM) Glucose (74-99) mg/dL Plasma Lactic Acid Rishi (0.7-2.0) mmol/L Calcium (8.4-10.2) mg/dL Total Bilirubin (0.2-1.3) mg/dL AST (14-36) U/L ALT (9-52) U/L Alkaline Phosphatase (38-126) U/L Total Protein (6.3-8.2) g/dL Albumin (3.5-5.0) g/dL Amylase (30-110) U/L Lipase (23-300) U/L Urine Color Yellow Urine Appearance Clear (Clear) Urine pH 5.5 (5.0-8.0) Ur Specific [place] 1.026 (1.001-1.035) Urine Protein Negative (Negative) Urine Glucose (UA) Negative (Negative) Urine Ketones Negative (Negative) Urine Blood Negative (Negative) Urine Nitrite Negative (Negative) Urine Bilirubin Negative (Negative) Urine Urobilinogen <2.0 (<2.0) mg/dL Ur Leukocyte Esterase Negative (Negative) - Radiology Data Radiology results: report reviewed, image reviewed CT of the abdomen and pelvis with contrast report reviewed in its entirety. Impression by Dr. Serrano shows appendectomy clips noted. No sign of acute abdomen and pelvis. I do not see across her abdominal pain. Disposition Clinical Impression: Postoperative abdominal pain Disposition: HOME SELF-CARE Condition: Good Instructions: Abdominal Pain (ED) Additional Instructions: Increase fluids. Take medications as directed. Follow-up with your primary care physician or surgeon for recheck in 1-2 days. Return here immediately for any new, worsening, or concerning symptoms. Prescriptions: Ondansetron [Zofran ODT] 4 mg PO Q8HR PRN #10 tab PRN Reason: Nausea Referrals: Sebastián Ibrahim DO [Primary Care Provider] - 1-2 days Time of Disposition: 19:14
[2016-12-06] MEDS ORDERED: RX INFO: IV CONTRAST WAS GIVEN 1 EACH MISC MISCELLANE PRN (17:58)
[2016-12-06 18:24] LABS: Basophils # (A) 0.1 k/uL (0-0.2); Basophils % (A) 1 %; CH 32.1; CHCM 34.4; Eosinophils # (A) 0.6 k/uL (0-0.7); Eosinophils % (A) 6 %; HCT 41.4 % (34.0-46.0); HDW 2.28; HGB 13.8 gm/dL (11.4-16.0); Luc % (Auto) 2; Lymphocytes % (A) 30 %; MCH 31.3 pg (25.0-35.0); MCHC 33.4 g/dL (31.0-37.0); MCV 93.6 fL (80.0-100.0); Mean Platelet Volume 8.2; Monocytes # (A) 0.5 k/uL (0-1.0); Monocytes % (A) 5 %; Neutrophils # (A) 5.6 k/uL (1.3-7.7); Neutrophils % (A) 57 %; RBC 4.43 m/uL (3.80-5.40); RDW 13.6 % (11.5-15.5); WBC (Perox) 9.98
[2016-12-06 18:29] LABS: Appearance,Urine Clear (Clear); Bilirubin,Urine Negative (Negative); Glucose,Urine (UA) Negative (Negative); Ketones,Urine Negative (Negative); Leukocyte Esterase,Urine Negative (Negative); Nitrite,Urine Negative (Negative); PH, Urine 5.5 (5.0-8.0); Protein,Urine Negative (Negative); Specific Gravity,Urine 1.026 (1.001-1.035); UA Billing (MACRO vs. MICRO) CHEM; Urobilinogen,Urine <2.0 mg/dL (<2.0)
[2016-12-06 18:36] LABS: ALT 182 U/L (9-52); AST 42 U/L (14-36); Alkaline Phosphatase 196 U/L (38-126); Amylase 56 U/L (30-110); Anion Gap 12 mmol/L; Blood Urea Nitrogen 15 mg/dL (7-17); Calcium 9.9 mg/dL (8.4-10.2); Carbon Dioxide 22 mmol/L (22-30); Chloride 104 mmol/L (98-107); Glucose 98 mg/dL (74-99); Non-African American GFR(MDRD) >60 (>60 ml/min/1.73 sqM); Potassium 4.6 mmol/L (3.5-5.1); Sodium 138 mmol/L (137-145); Total Bilirubin 0.5 mg/dL (0.2-1.3)
--- NOTE | 2016-12-06 19:01 | CT ---
EXAMINATION TYPE: CT abdomen pelvis w con DATE OF EXAM: 12/06/2016 COMPARISON: 11/21/2016 HISTORY: Patient is 2 weeks post appendectomy. Pain around umbilical incision site with nausea and vo miting. CT DLP: 785.70 mGycm Automated exposure control for dose reduction was used. TECHNIQUE: Helical acquisition of images was performed from the lung bases through the pelvis. CONTRAST: Performed without Oral Contrast and with IV Contrast, patient injected with 100 mL of Omnipaque 300. FINDINGS: Lung bases are clear. There is no pleural effusion. Liver spleen pancreas gallbladder appear normal. Bile ducts are not dilated. There is no adrenal mass. Kidneys show satisfactory contrast opacification. There is no hydronephrosi s. Ureters are not dilated. Bladder distends smoothly. There is no free fluid in the abdomen. I see n o intestinal wall thickening. There are clips from appendectomy. There are no dilated loops. There is no retroperitoneal adenopathy. The bony structures are intact. Uterus appears normal. IMPRESSION: APPENDECTOMY CLIPS NOTED. NO SIGN OF ACUTE ABDOMEN AND PELVIS. I DO NOT SEE A CAUSE FOR ABDOMINAL ZHENG N.
[2016-12-06] MEDS ORDERED: ACET/COD 300 MG/30 MG STARTER PACK 6 TAB BTL PO STA (19:17)
[2016-12-06 19:39] VITALS: BP 114/60; PULSE 90; RESP 16
== END 2016-12-06 19:38 | disposition home or self-care (01) ==
LOC: EC 17:13
DX: R10.33 Periumbilical pain (principal); G89.18 Other acute postprocedural pain; R11.2 Nausea with vomiting, unspecified; F32.9 Major depressive disorder, single episode, unspecified; Z87.891 Personal history of nicotine dependence; Z79.899 Other long term (current) drug therapy; Z88.2 Allergy status to sulfonamides; Z90.49 Acquired absence of other specified parts of digestive tract
CPT/HCPCS: 99284 ×2; 96374 ×2; 96375 ×2; 96361 ×2; 36415; 80053; 82150; 83605; 83690; 85025; 81003; 74177; J2405; J1170; Q9967

== ENCOUNTER 2017-09-15 14:39 | Emergency (ER) | payer BC, OTHER ==
[2017-09-15 16:03] VITALS: BP 140/75; PULSE 93; RESP 18; TEMP 98.2
[2017-09-15 17:17] LABS: Appearance,Urine Clear (Clear); Bacteria,Urine Occasional /hpf; Bilirubin,Urine Negative (Negative); Blood,Urine Negative (Negative); Budding Yeast,Urine Rare /hpf; Color,Urine Yellow; Glucose,Urine (UA) Negative (Negative); Ketones,Urine 3+ (Negative); Leukocyte Esterase,Urine Small (Negative); Mucus,Urine Occasional /hpf; Nitrite,Urine Negative (Negative); PH, Urine 5.5 (5.0-8.0); Protein,Urine Negative (Negative); RBC,Urine 1 /hpf (0-5); Squamous Epithelial Cell,Urine 1 /hpf (0-4); Urobilinogen,Urine <2.0 mg/dL (<2.0); WBC,Urine 4 /hpf (0-5)
[2017-09-15 17:35] LABS: ALT 62 U/L (9-52); AST 29 U/L (14-36); Albumin 4.3 g/dL (3.5-5.0); Alkaline Phosphatase 87 U/L (38-126); Anion Gap 12 mmol/L; Blood Urea Nitrogen 8 mg/dL (7-17); Calcium 9.6 mg/dL (8.4-10.2); Carbon Dioxide 21 mmol/L (22-30); Chloride 104 mmol/L (98-107); Glucose 80 mg/dL (74-99); Potassium 4.1 mmol/L (3.5-5.1); Sodium 137 mmol/L (137-145); Total Bilirubin 0.2 mg/dL (0.2-1.3); Total Protein 7.1 g/dL (6.3-8.2)
[2017-09-15 17:41] LABS: Basophils % (A) 0 %; Eosinophils # (A) 0.1 k/uL (0-0.7); Eosinophils % (A) 1 %; HCT 39.5 % (34.0-46.0); HGB 13.7 gm/dL (11.4-16.0); Lymphocytes # (A) 2.1 k/uL (1.0-4.8); Lymphocytes % (A) 18 %; MCH 31.1 pg (25.0-35.0); MCHC 34.7 g/dL (31.0-37.0); MCV 89.8 fL (80.0-100.0); Mean Platelet Volume 7.9; Monocytes # (A) 0.5 k/uL (0-1.0); Monocytes % (A) 4 %; Neutrophils # (A) 8.6 k/uL (1.3-7.7); Neutrophils % (A) 75 %; Platelet Count 219 k/uL (150-450); RBC 4.39 m/uL (3.80-5.40); RDW 12.6 % (11.5-15.5); WBC 11.5 k/uL (3.8-10.6)
[2017-09-15] MEDS ORDERED: SODIUM CHLORIDE 0.9% 2,000 ML IV ONE (17:42)
[2017-09-15] MEDS ORDERED: METOCLOPRAMIDE 5 MG/ML 2 ML VIAL IVP STA (17:42)
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
== END 2017-09-15 20:51 | disposition home or self-care (01) ==
LOC: EC 14:39
DX: O26.892 Other specified pregnancy related conditions, second trimester (principal); R10.9 Unspecified abdominal pain; O21.9 Vomiting of pregnancy, unspecified; Z86.14 Personal history of Methicillin resistant Staphylococcus aureus infection; Z3A.17 17 weeks gestation of pregnancy; Z87.891 Personal history of nicotine dependence; Z88.2 Allergy status to sulfonamides; V89.2XXA Person injured in unspecified motor-vehicle accident, traffic, initial encounter
CPT/HCPCS: 99284; 96374; 96361 ×2; 36415; 80053; 85025; 81001; 76805; J2765

== ENCOUNTER 2018-02-16 06:00 | Inpatient (IN) | payer BC ==
[2018-02-16] MEDS ORDERED: CARBOPROST TROMETHAMINE 250 MCG/ML 1 ML AMP IM PRN (06:39)
[2018-02-16] MEDS ORDERED: METHYLERGONOVINE 0.2 MG/ML 1 ML AMP IM PRN (06:39)
[2018-02-16] MEDS ORDERED: TERBUTALINE 1 MG/ML VIAL SQ PRN (06:39)
[2018-02-16] MEDS ORDERED: LIDOCAINE 0.5% (PF) 5 MG/ML (50 ML SDV) SQ PRN (06:39)
[2018-02-16] MEDS ORDERED: OXYTOCIN 10 UNIT/ML 1 ML VIAL IM PRN (06:39)
[2018-02-16] MEDS: LACTATED RINGERS 1,000 ML IV SCH ×4 (06:43→20:30)
[2018-02-16] MEDS ORDERED: OXYTOCIN 20 UNITS/1000 ML NS 1,000 ML IV SCH ×2 (06:45→23:00)
[2018-02-16 06:50] VITALS: BMI 31.4
[2018-02-16 06:51] LABS: Basophils % (A) 0 %; Eosinophils # (A) 0.2 k/uL (0-0.7); Eosinophils % (A) 2 %; HCT 39.1 % (34.0-46.0); HGB 13.2 gm/dL (11.4-16.0); Lymphocytes # (A) 1.9 k/uL (1.0-4.8); Lymphocytes % (A) 18 %; MCH 31.2 pg (25.0-35.0); MCHC 33.8 g/dL (31.0-37.0); MCV 92.3 fL (80.0-100.0); Mean Platelet Volume 10.6; Monocytes # (A) 0.5 k/uL (0-1.0); Monocytes % (A) 5 %; Neutrophils # (A) 7.4 k/uL (1.3-7.7); Neutrophils % (A) 73 %; Platelet Count 137 k/uL (150-450); RBC 4.23 m/uL (3.80-5.40); RDW 13.5 % (11.5-15.5); WBC 10.1 k/uL (3.8-10.6)
[2018-02-16] MEDS ORDERED: BUTORPHANOL 1 MG/ML 1 ML VIAL IV PRN (08:47)
--- NOTE | 2018-02-16 08:52 | P.HPOB ---
History of Present Illness H&P Date: 02/16/18 Chief Complaint: 39 and one sevenths weeks, IUGR The patient is a 27-year-old 1 para 0 admitted at 39 and one sevenths weeks as established by an 8 week ultrasound. She is admitted with a working diagnosis of intrauterine growth restriction based upon a third trimester ultrasound demonstrating growth at less than 3rd percentile. Since the diagnosis, she has had reassuring twice weekly testing as well as normal weekly amniotic fluid index and systolic to diastolic cord Doppler ratios. Her was otherwise uncomplicated and group B strep status is negative. On labor and delivery, all signs are reassuring. Obstetrical history: 1 para 0 with current statistics listed above. EDC of 02/22/2018 was established by an 8 week ultrasound. Laboratory workup demonstrates a blood type of A+ with a negative antibody screen. Rubella status is immune. The remainder of the laboratory workup was within normal limits. Early Glucola as well as second trimester Glucola were within normal limits and group B strep status is negative. Gynecologic history: Unremarkable with no history of any infections to include STDs. Review of Systems Review of systems is confined to history of present illness. Past Medical History Additional Past Medical History / Comment(s): migraines History of Any Multi-Drug Resistant Organisms: MRSA Date of last positivie culture/infection: 2012 MDRO Source:: bilateral inner thighs Past Surgical History: Appendectomy Past Anesthesia/Blood Transfusion Reactions: No Reported Reaction Past Psychological History: Depression Smoking Status: Former smoker Past Alcohol Use History: Occasional Past Drug Use History: None Reported - Past Family History Mother Family Medical History: No Reported History Medications and Allergies Home Medications Medication Instructions Recorded Confirmed Type Pnv No.95/Ferrous Fum/Folic AC 1 tab PO DAILY 09/15/17 09/15/17 History [ Multivitamin Tablet] Allergies Allergy/AdvReac Type Severity Reaction Status Date / Time sulfamethoxazole Allergy Rash/Hives Verified 02/16/18 06:38 [From Bactrim] trimethoprim [From Bactrim] Allergy Rash/Hives Verified 02/16/18 06:38 Exam Vital Signs Temp Pulse Resp BP 02/16/18 06:45 97.5 F L 88 16 141/88 Intake and Output 02/15/18 02/16/18 02/16/18 22:59 06:59 14:59 Other: Weight 78.018 kg In general, this is a well-developed, well-nourished white female in no acute distress. Her heart has a regular rhythm and rate without murmur. Her lungs are clear to auscultation bilaterally in all richter. Her abdomen is gravid, nondistended, has normal active bowel sounds, soft, nontender, and without any palpable masses aside from uterine fundus. Her extremities without any cyanosis , clubbing, or significant edema and are nontender to palpation bilaterally. Digital cervical examination demonstrates her surgery 1-2 cm dilated, 50% effaced, the vertex in presentation at -2 station. Artificial rupture of membranes is carried out demonstrating clear fluid. Results Result Diagrams: 02/16/18 06:40 Abnormal Lab Results - Last 24 Hours (Table) 02/16/18 Range/Units 06:40 Plt Count 137 L (150-450) k/uL Assessment and Plan (1) Term Current Visit: Yes Status: Acute Code(s): Z34.80 - ENCOUNTER FOR SUPRVSN OF NORMAL , UNSP TRIMESTER SNOMED Code(s): 37955683 (2) Intrauterine growth retardation in Current Visit: Yes Status: Acute Code(s): O36.5990 - MATERN CARE FOR OTH OR SUSP POOR FETL GRTH, UNSP TRI, UNSP SNOMED Code(s): 745024912 Plan: The patient has been admitted for induction of labor secondary to the diagnosis of IUGR. Pitocin augmentation has been started and artificial rupture of membranes carried out. She will have close maternal and surveillance and expectant management will be practiced. She is a good candidate for either IV or epidural analgesia, whichever she may choose.
[2018-02-16] MEDS ORDERED: fentaNYL (PF) 50 MCG/ML 5 ML AMP ONE (12:20)
[2018-02-16] MEDS ORDERED: ROPIVACAINE 5MG/ML 20ML VIAL ONE (12:20)
[2018-02-16] MEDS ORDERED: SODIUM CHLORIDE 0.9% 100 ML BAG ONE (12:20)
[2018-02-16] MEDS ORDERED: CITRIC ACID-SODIUM CITRATE 15 ML CUP PO ONE (20:21)
[2018-02-16] MEDS ORDERED: ceFAZolin IN SWFI 2 GM/20 ML SYRINGE IVP ONE (20:21)
[2018-02-16] MEDS ORDERED: OXYTOCIN 10 UNIT/ML 1 ML VIAL ONE (22:06)
[2018-02-16] MEDS ORDERED: ONDANSETRON 4 MG/2 ML VIAL ONE (22:06)
[2018-02-16] MEDS ORDERED: fentaNYL (PF) 50 MCG/ML 2 ML AMP ONE (22:06)
[2018-02-16] MEDS ORDERED: MORPHINE SULFATE (PF) 0.3 MG/0.3 ML SYR ONE (22:06)
[2018-02-16] MEDS ORDERED: LIDOCAINE 2% INJ 20 MG/ML (20 ML MDV) ONE (22:06)
[2018-02-16] MEDS ORDERED: KETOROLAC 30 MG/ML 1 ML VIAL ONE (22:06)
[2018-02-16] MEDS ORDERED: MORPHINE SULFATE 2 MG/ML SYRINGE IVP PRN (22:37)
[2018-02-16] MEDS ORDERED: NALBUPHINE 10 MG/ML VIAL (10ML MDV) IV PRN (22:37)
[2018-02-16] MEDS ORDERED: diphenhydrAMINE 50 MG/ML 1 ML VIAL IVP PRN ×3 (22:37→22:55)
[2018-02-16] MEDS ORDERED: NALOXONE 0.4 MG/ML 1 ML VIAL IV PRN (22:37)
[2018-02-16] MEDS ORDERED: ONDANSETRON 4 MG/2 ML VIAL IVP PRN (22:55)
[2018-02-16] MEDS ORDERED: diphenhydrAMINE 50 MG CAP PO PRN (22:55)
[2018-02-16] MEDS ORDERED: ZOLPIDEM 5 MG TAB PO PRN (22:55)
[2018-02-16] MEDS ORDERED: LANOLIN CREAM 5 GM TUBE TOPICAL PRN (22:55)
[2018-02-16] MEDS ORDERED: ACETAMINOPHEN TAB 325 MG TAB PO PRN (22:55)
[2018-02-16] MEDS ORDERED: HYDROcodone/APAP 5-325MG 1 EACH TAB PO PRN (22:55)
[2018-02-16] MEDS ORDERED: diphenhydrAMINE 25 MG CAP PO PRN (22:55)
[2018-02-16] MEDS ORDERED: METOCLOPRAMIDE 5 MG/ML 2 ML VIAL IVP PRN (22:55)
--- NOTE | 2018-02-16 23:04 | P.OP ---
Date of Procedure: 02/16/18 Preoperative Diagnosis: #1. 39 and one sevenths weeks, IUGR #2. Arrest of dilation and descent #3. Nonreassuring heart tones remote from delivery Postoperative Diagnosis: Same plus #4. Occiput posterior Procedure(s) Performed: #1. Primary low-transverse section Anesthesia: epidural Surgeon: Wilson Jain Nutter Up #1: Pravin Castillo Estimated Blood Loss (ml): 500 IV fluids (ml): 700 Urine output (ml): 100 Pathology: other (Placenta) Condition: stable Disposition: floor Operative Findings: During the induction process, the patient had made minimal progress throughout the day from approximately 1+ centimeters to 3+ centimeters. Significant Head begun to form. She made no progress from 3-4 cm over the course of approximate 4-6 hours. Additionally, she was found to have occasional late decelerations with contractions prompting Pitocin to be turned off. Given the repetitive and random decelerations as well as the remoteness from delivery and minimal change of cervix, the patient opted to proceed with primary low- transverse section at my recommendation. She was taken the operating room where she was delivered of a viable 4 lbs. 13 oz. baby girl with Apgars of 9 at 1 minute and 9 at 5 minutes delivered in the right occiput posterior position. The placenta was delivered manually, intact, and grossly normal with a grossly normal three-vessel cord. The uterus, tubes, and ovaries were entirely normal to inspection. Description of Procedure: The patient was prepped and draped in usual fashion after epidural anesthesia was bolused by the anesthesiologist. A Pfannenstiel incision was made and extended into the abdominal cavity without difficulty. The bladder peritoneum was elevated, incised and reflected distally. A 2 cm incision was made in the transverse plane of the lower uterine segment to enter the uterus at which time clear fluid was noted. The incision was extended in both directions using the bandage scissors. The head was encountered deep within the pelvis and very tight in the space but was ultimately delivered up and through the incision with the out significant difficulty. The nose and mouth were thoroughly suctioned. Remainder of the was delivered onto the field where the cord was doubly clamped, cut, and the infant passed for resuscitative measures with weight and Apgars as noted above. A segment of cord was doubly clamped, cut, and set aside should cord gases become necessary. The placenta was delivered manually and intact as noted above. The uterus was exteriorized and the interior cavity of the uterus swept of any remaining placental or membranous fragments. The margins of the incision were grasped with Jiménez clamps and the incision was closed in 2 layers. The first layer was a running locking stitch of 0 chromic catgut followed by a running imbricating stitch of 0 chromic catgut. Hemostasis appeared to be excellent. The posterior cul-de- sac was suctioned with a guard and the uterine and ovarian findings are normal as noted above. The uterus was replaced within the abdominal cavity and the gutters were swept of any remaining blood, fluid, or clot. The incision was reexamined and found to be hemostatic. Any small points of bleeding along the bladder peritoneum were made hemostatic with the Bovie. Once hemostasis had been established, the parietal peritoneum was loosely reapproximated and layer of muscles examined and found to be hemostatic. The fascia was closed with 2 running stitches of 0 Vicryl proceeding from the lateral margins to the midpoint. The subcutaneous tissues were irrigated, made hemostatic with the Bovie, and reapproximated with a running stitch of 30 plain catgut. The skin was reapproximated with a running subcuticular stitch of 4-0 Vicryl followed by half-inch Steri-Strips placed with Mastisol. Estimated blood loss for the entire case was approximate 500 mL. There were no complications. All sponge, instrument, and needle counts were correct. The patient tolerated the procedure well and proceeded to the recovery room in stable condition. Both mother and are resting comfortably in recovery.
[2018-02-16] MEDS ORDERED: LABETALOL 200 MG TAB PO STA (23:44)
[2018-02-16] MEDS ORDERED: LABETALOL 100 MG TAB PO STA (23:51)
[2018-02-17] MEDS: KETOROLAC 30 MG/ML 1 ML VIAL IVP PRN ×3 (04:31→16:46)
[2018-02-17] MEDS: LACTATED RINGERS 1,000 ML IV SCH (04:32)
[2018-02-17 06:59] LABS: Basophils % (A) 0 %; Eosinophils # (A) 0.1 k/uL (0-0.7); Eosinophils % (A) 0 %; HCT 34.6 % (34.0-46.0); HGB 11.6 gm/dL (11.4-16.0); Lymphocytes # (A) 1.2 k/uL (1.0-4.8); Lymphocytes % (A) 10 %; MCH 31.7 pg (25.0-35.0); MCHC 33.6 g/dL (31.0-37.0); MCV 94.2 fL (80.0-100.0); Mean Platelet Volume 10.2; Monocytes # (A) 0.5 k/uL (0-1.0); Monocytes % (A) 4 %; Neutrophils % (A) 84 %; Platelet Count 103 k/uL (150-450); RBC 3.68 m/uL (3.80-5.40); RDW 13.8 % (11.5-15.5); WBC 11.8 k/uL (3.8-10.6)
[2018-02-17] MEDS: SENNOSIDES-DOCUSATE SODIUM 1 EACH TAB PO SCH ×2 (10:27→20:23)
--- NOTE | 2018-02-17 11:03 | P.PNOBGPC ---
Subjective - Subjective Interval history: Patient reports feeling somewhat dizzy and with facial puffiness. Mild headache present. Patient reports: Reports appetite normal, Reports voiding normally, Reports pain well controlled, Reports ambulating normally [place]: doing well Objective - Vital Signs Latest vital signs: Vital Signs Temp Pulse Resp BP Pulse Ox 02/17/18 08:00 97.8 F 79 15 132/89 98 02/17/18 06:00 16 02/17/18 04:00 98.5 F 98 16 144/85 97 02/17/18 02:00 16 97 02/17/18 01:00 16 96 02/17/18 00:55 99.6 F 85 16 148/85 96 02/17/18 00:25 87 16 159/95 97 02/16/18 23:55 85 16 168/107 98 02/16/18 23:40 86 16 180/111 97 02/16/18 23:25 91 16 160/109 99 02/16/18 23:10 113 H 16 144/97 97 02/16/18 22:55 97.9 F 111 H 16 141/95 97 Intake and Output 02/16/18 02/17/18 02/17/18 22:59 06:59 14:59 Output Total 250 Balance -250 Output: Urine 250 Uretheral (Kahn) 100 - Exam Extremities: Present: normal Abdomen: Present: normal appearance, soft. Absent: distention, tenderness Incision: Present: normal, dry, intact Uterus: Present: normal, firm (The uterine fundus as tonic and appropriately tender well below the umbilicus.) - Labs Labs: Abnormal Lab Results - Last 24 Hours (Table) 02/17/18 Range/Units 06:17 WBC 11.8 H (3.8-10.6) k/uL RBC 3.68 L (3.80-5.40) m/uL Plt Count 103 L (150-450) k/uL Neutrophils # 10.0 H (1.3-7.7) k/uL Assessment and Plan (1) Term Current Visit: Yes Status: Acute Code(s): Z34.80 - ENCOUNTER FOR SUPRVSN OF NORMAL , UNSP TRIMESTER SNOMED Code(s): 74598100 (2) Intrauterine growth retardation in Current Visit: Yes Status: Acute Code(s): O36.5990 - MATERN CARE FOR OTH OR SUSP POOR FETL GRTH, UNSP TRI, UNSP SNOMED Code(s): 236895309 (3) S/P section Current Visit: Yes Status: Acute Code(s): Z98.891 - HISTORY OF UTERINE SCAR FROM PREVIOUS SURGERY SNOMED Code(s): 718888391 Plan: The patient's platelet count dropped somewhat from her admission labs and she is complaining of some facial edema as well as mild headache. Given her episode of high blood pressure last night which appears to have resolved at this point with a single dose of labetalol, I will order AST and ALT and likely plan to repeat CBC with AST and ALT in the morning. I have encouraged her to be up and ambulating at least in her room. She is tolerating regular diet at this time. We will continue to follow her blood pressures closely for the need to schedule labetalol.
--- NOTE | 2018-02-17 12:29 | P.PN ---
Progress Note - Text Anesthesia POD 1. Patient is status post section under epidural anesthesia with intra-thecal preservative free morphine 3 mg. Minimal pruritus , excellent post-op analgesia, and no complications.
[2018-02-17 13:01] LABS: ALT 24 U/L (9-52); AST 28 U/L (14-36)
[2018-02-17] MEDS: LABETALOL 100 MG TAB PO SCH ×2 (13:32→21:16)
[2018-02-17] MEDS: IBUPROFEN 600 MG TAB PO PRN (23:15)
[2018-02-18] MEDS: HYDROcodone/APAP 7.5-325MG 1 EACH TAB PO PRN ×4 (02:01→22:02)
[2018-02-18] MEDS: IBUPROFEN 600 MG TAB PO PRN ×3 (04:44→19:23)
[2018-02-18] MEDS: SENNOSIDES-DOCUSATE SODIUM 1 EACH TAB PO SCH ×2 (08:39→20:07)
[2018-02-18] MEDS: LABETALOL 100 MG TAB PO SCH ×2 (08:39→20:42)
--- NOTE | 2018-02-18 08:42 | P.PNOBGPC ---
Subjective - Subjective Interval history: Patient feeling significantly less puffy today and denies the headache and dizziness. Patient reports: Reports appetite normal, Reports voiding normally, Reports pain well controlled, Reports ambulating normally : doing well Objective - Vital Signs Latest vital signs: Vital Signs Temp Pulse Resp BP Pulse Ox 02/17/18 23:53 98.0 F 82 16 153/89 97 02/17/18 22:00 16 02/17/18 20:00 98.5 F 130 H 44 H 02/17/18 17:30 16 02/17/18 16:00 98.9 F 83 16 128/80 98 02/17/18 12:00 98.6 F 86 15 151/96 98 Intake and Output 02/17/18 02/18/18 02/18/18 22:59 06:59 14:59 Output Total 300 Balance -300 Output: Urine 300 - Exam Extremities: Present: normal Abdomen: Present: normal appearance, soft. Absent: distention, tenderness Incision: Present: normal, dry, intact Uterus: Present: normal, firm (The uterine fundus as tonic and appropriately tender below the umbilicus.) Assessment and Plan (1) Term Current Visit: Yes Status: Acute Code(s): Z34.80 - ENCOUNTER FOR SUPRVSN OF NORMAL , UNSP TRIMESTER SNOMED Code(s): 72340107 (2) Intrauterine growth retardation in Current Visit: Yes Status: Acute Code(s): O36.5990 - MATERN CARE FOR OTH OR SUSP POOR FETL GRTH, UNSP TRI, UNSP SNOMED Code(s): 186009742 (3) S/P section Current Visit: Yes Status: Acute Code(s): Z98.891 - HISTORY OF UTERINE SCAR FROM PREVIOUS SURGERY SNOMED Code(s): 826613742 Plan: Continue routine postoperative care. We have scheduled labetalol 100 mg twice a day and will intend to carried on in the outpatient. We will consider discharge home tomorrow assuming no changes in patient's status occur. Repeat CBC today.
[2018-02-18 09:22] LABS: HGB 11.4 gm/dL (11.4-16.0); MCH 31.7 pg (25.0-35.0); MCHC 33.4 g/dL (31.0-37.0); MCV 94.8 fL (80.0-100.0); Mean Platelet Volume 9.7; Platelet Count 124 k/uL (150-450); RBC 3.59 m/uL (3.80-5.40); RDW 13.8 % (11.5-15.5)
[2018-02-19] MEDS: IBUPROFEN 600 MG TAB PO PRN ×2 (00:55→08:06)
[2018-02-19] MEDS: HYDROcodone/APAP 7.5-325MG 1 EACH TAB PO PRN (04:01)
[2018-02-19] MEDS: LABETALOL 100 MG TAB PO SCH (08:06)
[2018-02-19 08:54] VITALS: BP 156/99; PULSE 94; RESP 16; TEMP 98.4
[2018-02-19] MEDS: SENNOSIDES-DOCUSATE SODIUM 1 EACH TAB PO SCH (08:55)
--- NOTE | 2018-02-19 08:58 | P.DS ---
Providers Date of admission: 02/16/18 06:28 Expected date of discharge: 02/19/18 Attending physician: Wilson Jain Primary care physician: Sebastián Ibrahim - Discharge Diagnosis(es) (1) Term Current Visit: Yes Status: Acute (2) Intrauterine growth retardation in Current Visit: Yes Status: Acute (3) S/P section Current Visit: Yes Status: Acute Hospital Course: The patient is a 27-year-old 1 para 0 admitted at 39 and one sevenths weeks for induction. She is admitted secondary to the diagnosis of intrauterine growth restriction with growth at less than 3rd percentile. She has had reassuring testing with normal fluid volumes and systolic to diastolic cord Doppler readings. Her was otherwise uncomplicated and group B strep status was negative. On labor and delivery, she had Pitocin started and underwent artificial rupture of membranes for clear to lightly meconium-stained fluid. She made very minimal progress throughout the entire course of the day progressing from 1-2 to approximately 3+ centimeters where she remained for approximately 6 hours. She also developed some repetitive decelerations with occasional late decelerations remote from delivery. As result, she was taken the operating room and delivered of a viable 4 lbs. 13 oz. baby girl with Apgars of 9 at 1 minute and 9 at 5 minutes. Her postoperative course was complicated by the development of increasing blood pressures prompting the start of labetalol 100 mg twice daily. This did keep blood pressures within a relatively normal range of they're still slightly elevated. She denies any symptoms of as regards the blood pressures. Liver functions were normal and, though her initial platelet count was low, it has returned to a almost normal level at this time. She was deemed stable for discharge on postoperative day #3 and was discharged home to follow-up in the office in 2 weeks for an incision check and 6 weeks routinely. Discharge instructions included calling for any significantly increased bleeding or foul- smelling lochia, significantly increased fever abdominal pain, perineal complaints, breast complaints, incisional complaints, or anything else that concerned her. She was additionally instructed to have nothing in the vagina for at least 6 weeks time to include intercourse. She understood her instructions and agrees follow up as noted above. Discharge medications included continued vitamins as she has opted to breast-feed. She was provided with a prescription for labetalol 100 mg twice daily, dispensed #60 with 3 refills. She was additionally provided with a prescription for [place] 5/ 325 mg, 1-2 by mouth every 6 hours when necessary pain, #20 dispensed with no refills. Maternal blood type is A+ and rubella status is immune. Discharge hemoglobin and hematocrit were 11.4 and 34.0 respectively. Procedures: #1. Pitocin induction #2. Artificial rupture of membranes #3. Epidural analgesia #4. Primary low-transverse section Patient Condition at Discharge: Stable Plan - Discharge Summary New Discharge Prescriptions: No Action Pnv No.95/Ferrous Fum/Folic AC [ Multivitamin Tablet] 1 tab PO DAILY Discharge Medication List Pnv No.95/Ferrous Fum/Folic AC [ Multivitamin Tablet] 1 tab PO DAILY [History] Follow up Appointment(s)/Referral(s): Wilson Jain MD [STAFF PHYSICIAN] - 2 Weeks Discharge Disposition: HOME SELF-CARE
== END 2018-02-19 11:35 | disposition home or self-care (01) | DRG 786 ==
LOC: 4FBP 06:28
PROVIDERS: ADMIT Obstetrics & Gynecology; ATTEND Obstetrics & Gynecology
PROC: 10907ZC Drainage of Amniotic Fluid, Therapeutic from Products of Conception, Via Natural or Artificial Opening (ICD-10-PCS; 2018-02-16)
PROC: 3E033VJ Introduction of Other Hormone into Peripheral Vein, Percutaneous Approach (ICD-10-PCS; 2018-02-16)
PROC: 10D00Z1 Extraction of Products of Conception, Low, Open Approach (ICD-10-PCS; principal; 2018-02-16 21:20)
DX: O36.5930 Maternal care for other known or suspected poor fetal growth, third trimester, not applicable or unspecified (principal); O99.42 Diseases of the circulatory system complicating childbirth; O99.354 Diseases of the nervous system complicating childbirth; O76 Abnormality in fetal heart rate and rhythm complicating labor and delivery; O62.1 Secondary uterine inertia; O77.0 Labor and delivery complicated by meconium in amniotic fluid; O99.344 Other mental disorders complicating childbirth; F32.9 Major depressive disorder, single episode, unspecified; O99.62 Diseases of the digestive system complicating childbirth; O99.72 Diseases of the skin and subcutaneous tissue complicating childbirth; Z37.0 Single live birth; Z3A.39 39 weeks gestation of pregnancy; K21.9 Gastro-esophageal reflux disease without esophagitis; G43.909 Migraine, unspecified, not intractable, without status migrainosus; L29.9 Pruritus, unspecified; R42 Dizziness and giddiness; R03.0 Elevated blood-pressure reading, without diagnosis of hypertension; Z87.891 Personal history of nicotine dependence; Z86.14 Personal history of Methicillin resistant Staphylococcus aureus infection
CPT/HCPCS: 84450; 84460; 85025; 85027; 86850; 86900; 86901; 88307

== ENCOUNTER 2018-09-08 18:25 | Observation (INO) | payer BC ==
[2018-09-08] MEDS ORDERED: NALOXONE 0.4 MG/ML 1 ML VIAL IV PRN (18:58)
--- NOTE | 2018-09-08 18:58 | ED ---
General Adult HPI - General Chief complaint: Syncope Stated complaint: Syncope Time Seen by Provider: 09/08/18 18:31 Source: patient Mode of arrival: EMS Limitations: no limitations - History of Present Illness Initial comments: Dictation was produced using [employer] dictation software. please excuse any grammatical, word or spelling errors. Chief Complaint: 28-year-old female past medical history of migraines presents with multiple syncopal episodes today. History of Present Illness: 28-year-old female presents with multiple syncopal episodes today. Patient has been initially seen and evaluated at [facility]. She was worked up had labs and CT imaging performed all found to be negative. She was sent here for concerns of syncope versus seizure. Patient evaluated at bedside reports that she had multiple episodes of syncope today. Significant other who is at bedside reports that she was confused for approximately 20-30 minutes after the episode. Patient has a history of seizure. Denies any trauma to the head. Patient denies any palpitations prior to the episode of syncope. The ROS documented in this emergency department record has been reviewed and confirmed by me. Those systems with pertinent positive or negative responses have been documented in the HPI. All other systems are other negative and/or noncontributory. PHYSICAL EXAM: General Impression: Alert and oriented x3, not in acute distress HEENT: Normocephalic atraumatic, extra-ocular movements intact, pupils equal and reactive to light bilaterally, mucous membranes moist. Cardiovascular: Heart regular rate and rhythm, S1&S2 audible, no murmurs, rubs or gallops Chest: Lungs clear to auscultation bilaterally, no rhonchi, no wheeze, no rales Abdomen: Bowel sounds present, abdomen soft, non-tender, non-distended, no organomegaly Musculoskeletal: Pulses present and equal in all extremities, no peripheral edema Motor: no focal deficits noted Neurological: CN II-XII grossly intact, no focal motor or sensory deficits noted Skin: Intact with no visualized rashes Psych: Normal affect and mood ED course: 28-year-old female sent in from [facility] for neurology consultation. There is concern of syncope versus new-onset seizure. Signs upon arrival are within acceptable limits. Patient is well-appearing at bedside. Physical examination is benign. Clinical presentation is concerning for new-onset seizure given that there is several minutes of what sounds like post ictal state that was witnessed by her significant other. Chart was reviewed from [facility] found to be benign. Discussed patient case with Dr. Funez patient be admitted to observation with neurology on consultation. - Related Data Home Medications Medication Instructions Recorded Confirmed Pnv No.95/Ferrous Fum/Folic AC 1 tab PO DAILY 09/15/17 09/15/17 [ Multivitamin Tablet] Allergies Allergy/AdvReac Type Severity Reaction Status Date / Time sulfamethoxazole Allergy Rash/Hives Verified 02/16/18 06:38 [From Bactrim] trimethoprim [From Bactrim] Allergy Rash/Hives Verified 02/16/18 06:38 Review of Systems ROS Statement: Those systems with pertinent positive or pertinent negative responses have been documented in the HPI. ROS Other: All systems not noted in ROS Statement are negative. Past Medical History Additional Past Medical History / Comment(s): migraines History of Any Multi-Drug Resistant Organisms: MRSA Date of last positivie culture/infection: 2012 MDRO Source:: bilateral inner thighs Past Surgical History: Appendectomy Past Anesthesia/Blood Transfusion Reactions: No Reported Reaction Past Psychological History: Depression Smoking Status: Former smoker Past Alcohol Use History: Occasional Past Drug Use History: None Reported - Past Family History Mother Family Medical History: No Reported History General Exam Limitations: no limitations Course Vital Signs 09/08/18 18:32 Temperature 98.8 F Pulse Rate 98 Respiratory 17 Rate Blood Pressure 121/87 O2 Sat by Pulse 98 Oximetry Disposition Clinical Impression: Syncope Disposition: ADMITTED IP TO THIS HOSP Condition: Fair Referrals: Sebastián Ibrahim DO [Primary Care Provider] - 1-2 days Decision Time: 18:58
[2018-09-08] MEDS: ACETAMINOPHEN TAB 325 MG TAB PO PRN (19:37)
[2018-09-08] MEDS: ONDANSETRON 4 MG/2 ML VIAL IVP PRN (19:37)
[2018-09-08] MEDS ORDERED: LORazepam 2 MG/ML INJ IM PRN (21:21)
[2018-09-09] MEDS: ACETAMINOPHEN TAB 325 MG TAB PO PRN ×2 (06:04→21:59)
[2018-09-09 08:53] LABS: Basophils % (A) 0 %; Eosinophils # (A) 0.3 k/uL (0-0.7); Eosinophils % (A) 5 %; HCT 35.9 % (34.0-46.0); HGB 11.6 gm/dL (11.4-16.0); Lymphocytes # (A) 2.3 k/uL (1.0-4.8); Lymphocytes % (A) 37 %; MCH 30.6 pg (25.0-35.0); MCHC 32.3 g/dL (31.0-37.0); MCV 94.8 fL (80.0-100.0); Mean Platelet Volume 7.9; Monocytes # (A) 0.3 k/uL (0-1.0); Monocytes % (A) 6 %; Neutrophils # (A) 3.1 k/uL (1.3-7.7); Neutrophils % (A) 50 %; Platelet Count 195 k/uL (150-450); RBC 3.79 m/uL (3.80-5.40); RDW 13.5 % (11.5-15.5); WBC 6.2 k/uL (3.8-10.6)
[2018-09-09 09:06] LABS: ALT 93 U/L (9-52); AST 81 U/L (14-36); African American GFR (CKD) >90 (>60 ml/min/1.73 sqM); Albumin 3.6 g/dL (3.5-5.0); Alkaline Phosphatase 113 U/L (38-126); Anion Gap 6 mmol/L; Blood Urea Nitrogen 13 mg/dL (7-17); Calcium 8.9 mg/dL (8.4-10.2); Carbon Dioxide 27 mmol/L (22-30); Chloride 108 mmol/L (98-107); Glucose 84 mg/dL (74-99); Magnesium 1.7 mg/dL (1.6-2.3); Potassium 4.4 mmol/L (3.5-5.1); Sodium 141 mmol/L (137-145); Total Bilirubin 0.3 mg/dL (0.2-1.3); Total Protein 5.9 g/dL (6.3-8.2)
[2018-09-09] MEDS: PANTOPRAZOLE 40 MG TABLET PO SCH (09:39)
--- NOTE | 2018-09-09 12:42 | P.HPIM ---
History of Present Illness 28-year-old female came in with complaints of 2 syncopal episodes happen day before yesterday. Patient the episodes started with aura-like symptoms and the lost consciousness about for 15 minutes and one of the episodes were described by her that she may have had jerking of her left leg. There is a questionable postictal confusion and question of tongue biting although it is not clearly appreciated on clinical exam denied any loss of bowel or bladder incontinence. I do not hear EKG available at this time we'll Allsop an echocardiogram to rule out causes for syncope. Couple years ago patient use to have similar symptoms at that time on migraine medications were discontinued that medication was attributed to her seizures by outpatient neurologist. Since then she never had any such episodes. Although patient was taking Topamax for migraine. Which she stopped taking because of her . Patient presently breast-feeding. Neurology validate the patient discusses the with neurology and plan is to get an EEG and an MRI and if echocardiogram is within normal limits patient will be discharged tomorrow after 2 overnight monitoring today and will not drive for 6 months and will be discharged without any antiseizure medications and the patient has similar episodes then we will need ablator EEG or long-term EEG monitoring. Review of Systems REVIEW OF SYSTEMS: CONSTITUTIONAL: No fever, no malaise, no fatigue. HEENT: No recent visual problems or hearing problems. Denied any sore throat. CARDIOVASCULAR: No chest pain, orthopnea, PND, no palpitations, no syncope. PULMONARY: No shortness of breath, no cough, no hemoptysis. GASTROINTESTINAL: No diarrhea, no nausea, no vomiting, no abdominal pain. NEUROLOGICAL: No headaches, no weakness, no numbness. HEMATOLOGICAL: Denies any bleeding or petechiae. GENITOURINARY: Denies any burning micturition, frequency, or urgency. MUSCULOSKELETAL/RHEUMATOLOGICAL: Denies any joint pain, swelling, or any muscle pain. ENDOCRINE: Denies any polyuria or polydipsia. The rest of the 14-point review of systems is negative. Past Medical History Additional Past Medical History / Comment(s): migraines History of Any Multi-Drug Resistant Organisms: MRSA Date of last positivie culture/infection: 2012 MDRO Source:: bilateral inner thighs Past Surgical History: Appendectomy, Section Past Anesthesia/Blood Transfusion Reactions: No Reported Reaction Past Psychological History: Depression Smoking Status: Current every day smoker Past Alcohol Use History: Occasional Past Drug Use History: None Reported - Past Family History Mother Family Medical History: No Reported History Medications and Allergies Home Medications Medication Instructions Recorded Confirmed Type Pnv No.95/Ferrous Fum/Folic AC 1 tab PO DAILY 09/15/17 09/08/18 History [ Multivitamin Tablet] Ascorbic Acid [Vitamin C] 1,000 mg PO DAILY 09/08/18 09/08/18 History Sertraline [Zoloft] 50 mg PO DAILY 09/08/18 09/08/18 History Allergies Allergy/AdvReac Type Severity Reaction Status Date / Time sulfamethoxazole Allergy Rash/Hives Verified 09/08/18 19:18 [From Bactrim] trimethoprim [From Bactrim] Allergy Rash/Hives Verified 09/08/18 19:18 Physical Exam Vitals: Vital Signs Temp Pulse Pulse Resp BP BP Pulse Ox 09/09/18 12:17 97.9 F 63 18 95/61 94 L 09/09/18 04:00 97.7 F 79 18 106/66 96 09/09/18 00:00 97.9 F 85 18 103/63 97 09/08/18 20:15 98.6 F 61 18 103/66 98 09/08/18 19:21 97.9 F 68 12 113/75 98 09/08/18 18:32 98.8 F 98 17 121/87 98 Intake and Output 09/08/18 09/09/18 09/09/18 22:59 06:59 14:59 Intake Total 10 440 Balance 10 440 Intake: Amount of Fluid Infused ( 10 ml) Oral 440 Other: Voiding Method Toilet Toilet # Voids 1 Weight 58.967 kg PHYSICAL EXAMINATION: GENERAL: The patient is alert and oriented x3, not in any acute distress. Well developed, well nourished. HEENT: Pupils are round and equally reacting to light. EOMI. No scleral icterus. No conjunctival pallor. Normocephalic, atraumatic. No pharyngeal erythema. No thyromegaly. CARDIOVASCULAR: S1 and S2 present. No murmurs, rubs, or gallops. PULMONARY: Chest is clear to auscultation, no wheezing or crackles. ABDOMEN: Soft, nontender, nondistended, normoactive bowel sounds. No palpable organomegaly. MUSCULOSKELETAL: No joint swelling or deformity. EXTREMITIES: No cyanosis, clubbing, or pedal edema. NEUROLOGICAL: Gross neurological examination did not reveal any focal deficits. SKIN: No rashes. Results CBC & Chem 7: 09/09/18 07:50 09/09/18 07:50 Labs: Abnormal Lab Results - Last 24 Hours (Table) 09/09/18 09/09/18 Range/Units 07:50 07:50 RBC 3.79 L (3.80-5.40) m/uL Chloride 108 H (98-107) mmol/L AST 81 H (14-36) U/L ALT 93 H (9-52) U/L Total Protein 5.9 L (6.3-8.2) g/dL Thrombosis Risk Factor Assmnt - Choose All That Apply Any of the Below Risk Factors Present?: No Other Risk Factors: No Other congenital or acquired thrombophilia - If yes, enter type in comment: No Thrombosis Risk Factor Assessment Level: Very Low Risk Assessment and Plan Plan: Possible syncope versus seizure: Patient will undergo a workup for both will obtain echo cardiac exam patient underwent MRI and an EEG as mentioned above neurology evaluate the patient as of now patient is not any antiseizure medications patient will not be started on antiseizure medications. -Migraine without any migraine exacerbations in the headaches at this time. -Depression -Nicotine abuse: Counseling was provided -Mildly elevated liver enzymes no further workup is necessary but the problem is beneficial to repeat liver enzymes in about a week or so. Patient will not need pharmacologic GI DVT prophylaxis DVT prophylaxis early ambulation
[2018-09-09 13:32] VITALS: BMI 23.8
--- NOTE | 2018-09-09 16:49 | CT ---
EXAMINATION TYPE: CT angio head neck DATE OF EXAM: 09/09/2018 HISTORY: syncopal episode COMPARISON: NONE CT DLP: 239.1 mGycm. Automated Exposure Control for Dose Reduction was Utilized. TECHNIQUE: CTA scan of the head and neck are performed with IV Contrast, patient injected with 50cc mL of Isovue 370, axial images are obtained, coronal and sagittal reformatted images are reviewed. Th ree-D reconstructed images are created on an independent workstation and reviewed. FINDINGS: Carotid/Vascular Structures: There is normal three-vessel origin from the aortic arch without signifi cant plaque or stenosis. Right common carotid artery shows normal origin from right brachiocephalic a rtery. There is no significant plaque or stenosis in right common or internal carotid arteries includ ing at level of right carotid bulb. Right external carotid artery is patent without significant plaqu e or stenosis. Left common and internal carotid artery show no significant plaque or stenosis. Left e xternal carotid artery is patent without significant plaque or stenosis. There is codominant vertebrobasilar system. Vertebral arteries are patent to basilar junction. There is a patent right posterior communicating artery. There is hypoplastic left posterior communicating a rtery. No significant focal stenosis or aneurysmal change is seen. Images of the anterior circulation do not well identify anterior communicating artery. No significant focal stenosis or aneurysmal change is present. Other: No suspicious incidental findings. IMPRESSION: No significant stenosis in common or internal carotid arteries bilaterally. No aneurysma l change or significant stenosis at level of [place] of [place].
--- NOTE | 2018-09-09 17:14 | EEG ---
ELECTROENCEPHALOGRAM REPORT DATE OF SERVICE: 09/09/2018. REFERRING PHYSICIAN: Dr. Funez. CLINICAL HISTORY: This is an 18 channel EEG with 1 channel EKG recording on a 28-year-old female with history of recurrent blackout episodes. This study is being done to rule out epileptiform discharges. FINDINGS: Wakefulness was obtained during the recording. In the maximal awake state, a moderate voltage 10 hertz posterior dominant background rhythm was demonstrated. This is regulated, sustained, symmetric and reactive to eye opening. Low-voltage faster frequencies were best seen over the frontal and central head regions. Photic stimulation produced a symmetric driving response and a few flash frequencies. Hyperventilation produced mild buildup of slower frequencies but added no additional features. No sleep architecture was seen. No epileptiform discharges or focal lateralizing features are present. SUMMARY: Normal awake EEG. INTERPRETATION: This EEG is within normal limits for age. No epileptiform discharges or focal lateralized features are present. MMODL / IJN: [id number] /
--- NOTE | 2018-09-09 18:44 | CONS ---
CONSULTATION DATE OF SERVICE: 09/09/2018 HISTORY OF PRESENT ILLNESS: Thank you for allowing me to evaluate Mila Fowler, who is a 28-year-old left- handed white female who presented to [facility] on 09/08/2018 as a transfer from [facility] for evaluation of recurrent passing-out episodes. The patient is employed as a pediatric medical assistant and states that 2 days ago she returned after working an 8-hour shift, went into the bathroom to wash her hands, and the next thing she could remember is waking up on the floor about 2 minutes later. She states she had no prodrome prior to passing out such as lightheadedness, diaphoresis, nausea or vomiting. This spell was unwitnessed. The patient states she fell on clothing and did not strike her head. With this event, the patient states she bit her lip. There was no urine/stool incontinence. The patient states she was confused following the event and had a headache, which she did not have before the episode. She states she reoriented within 10 minutes and described the headache as a bifrontal pulsating sensation. She took Tylenol, which provided some benefit, and later in the day the headache resolved. The headache was associated with nausea, but the patient did not vomit. She was mildly photophobic but not phonophobic. She rested for the remainder of the day. The next day (yesterday), the patient states she got up, contacted her primary care physician regarding the episode and was seen in the office and set up for testing, including a CT scan of the brain. After coming home, the patient went to take a shower but has no recollection of going upstairs for this. The last thing she could remember is being downstairs with her 7-month-old daughter. Her went to check on her and found her face down in the shower. He states that items in the shower were knocked over. The patient was conscious but had difficulty getting herself out of the shower and had to be helped by her . He noted her right lower extremity to be twitching, and it continued to twitch for 20 minutes without other extremities being involved. The patient was awake when this was occurring. He saw no obvious urine, stool or vomit in the shower. The patient states that she did bite her lip with this event as well and was reportedly confused for 30-60 minutes following the event. She was subsequently taken to [facility] for further evaluation and treatment. At that facility the patient had a CT scan of brain completed without contrast which was unrevealing, and she was subsequently sent to [facility] for further evaluation. The patient states she has had blacking-out episodes over the past 2 years. Two years ago she states these were occurring on a near-daily basis and she did see a neurologist in [place] for evaluation. She states no testing was completed and these episodes were attributed to the patient using Maxalt. After this medication was discontinued, the episodes seemed to improve. With the events 2 years ago, the patient states she would get lightheaded beforehand and would sit down to prevent injury from losing consciousness. She states after the spells seemed to decrease in frequency 2 years ago, she had perhaps 5-6 events since then, with the last one occurring 6 months ago. The patient has a history of migraine with visual aura (described as dark spots in the vision) and states these headaches are typically a bifrontal pulsating sensation with associated nausea, vomiting, photophobia, phonophobia. The patient states she will typically lie down in a dark quiet room when these occur. Prior to becoming , the patient was on Topamax, which did benefit the headache frequency, but after delivery the Topamax was not re-initiated due to the patient breast-feeding. She states she is currently getting a migraine about once every 1-2 weeks. At this time the patient states she feels "okay" but tired and continues to have a migrainous headache following yesterday's event. ALLERGIES: BACTRIM. HOME MEDICATIONS: 1. Zoloft 50 mg daily. 2. control pills. 3. vitamin. 4. Vitamin C. PAST MEDICAL HISTORY: 1. Migraine with visual aura. 2. Depression. 3. Tobacco abuse. The patient denies meningitis, encephalitis, febrile seizure or head trauma with loss of consciousness. HISTORY: The patient states she was 6 weeks' premature, but there were no other complications during her mother's or delivery that she is aware of. PAST SURGICAL HISTORY: Appendectomy. SOCIAL HISTORY: The patient smokes a half pack per day and smoked over the past 8 years. She occasionally consumes alcohol and denies drug use. She denied sexually transmitted diseases. She is with one child (7 months old) and has been breast-feeding. She lives in an apartment with her , daughter and 's daughter. 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 FAMILY HISTORY: There is no family history of seizures. The patient's parents are alive and in relatively good health other than father with hypertension. REVIEW OF SYSTEMS: Fourteen systems are reviewed and no additional points are identified. The review of systems is documented in the history and physical. PHYSICAL EXAMINATION: Upon my arrival in the patient's room, she was lying in bed, receptive to the examiner. Affect is flat. She is tearful through much of the evaluation. She denied significant stressors other than not knowing what is causing her to black out. She appears of stated age and is at the bedside. VITAL SIGNS: Blood pressure is 106/66 with pulse 79, respiratory rate 18, temperature 97.7. SKIN AND EXTREMITIES: The patient has a tattoo over the right lateral leg. HEAD AND NECK: No tenderness or signs of trauma. Neck is supple without meningeal signs. Arteries are nontender and without bruits. HEART: Regular rate and rhythm. HIGHER CORTICAL FUNCTION: MENTAL STATUS: Patient was alert and oriented to self, "Krish Rodriguez." She knew the floor, year, month and day of the week. She was able to name, repeat and read. There was no left and right disorientation, finger-nose extinction to double simultaneous stimulation or dysarthria. CRANIAL NERVES II THROUGH XII: II: Pupils are equal and reactive to light symmetrically. No afferent pupillary defect. Visual richter are intact. III, IV, : No ptosis. Extraocular movements are full. No nystagmus. V: Pinprick and light touch intact in all 3 divisions. Motor 5 intact. VII: No facial asymmetry or weakness. Acuity intact to finger rub. IX, X: Palate mamie in the midline. XI: Trapezius strength intact. XII: Tongue protruded midline without fasciculation or atrophy. Although the patient pointed to her lower lip, no lip bite or tongue bite was appreciated. MOTOR EXAMINATION: There is no pronator drift. Normal bulk and tone is noted in all major muscle groups with no involuntary movements noted. Strength is 5/5 throughout. Sensory intact to pinprick, light touch in all extremities. Reflexes with right side listed first: biceps 2,2; brachioradialis 2,2; triceps 2+,2+; patella 2+, +; ankle 2+,+. Plantar response is flexor bilaterally. Reza's is absent. COORDINATION: Avzfxc-qv-[id number], naqm-ct-gdyt movements are intact. Rapid alternating movements are symmetric with finger tapping. DIAGNOSTIC TESTING: Patient had a CT scan of the brain completed without contrast at [facility] which demonstrated no acute pathology. LAB WORK: Lab work from [facility] included a white blood count of 7.6 with a hemoglobin of 12.5, platelet count 206. Sodium 146, potassium 4.3, BUN 11 with a creatinine of 0.8, calcium 8.7. ALT at [facility] was 68, AST 24. At [facility], ALT 93, AST 81. Urinalysis revealed negative nitrate and leukocyte esterase. IMPRESSION: 1. Blackout episodes which have occurred over the past 2 years and 2 over the past 2 days. With prior events, the patient had a prodrome of lightheadedness; now denies associated prodrome with reported lip bites and post-event confusion. Differential diagnosis includes syncope, seizure versus nonepileptic events (particularly in the setting of the issues discussed). 2. Depression, maintained on Zoloft. The patient cried through much of this neurologic evaluation. 3. Elevated transaminase levels; defer to your expertise. 4. Tobacco abuse. 5. The patient has been breast-feeding. RECOMMENDATIONS: 1. I discussed my impression and plan with the patient, , nursing staff and primary service. 2. Will obtain urine test. 3. If the urine test is negative, will obtain MRI of the brain with and without contrast, CTA of the head/neck vessels and EEG. CT of the brain without contrast performed at [facility] was unrevealing. 4. Cardiac workup as felt clinically indicated per primary service. 5. If the above workup is unrevealing, we may consider re-initiating Topamax if the patient plans to suspend breast-feeding. 6. No driving x6 months per [place] driving regulations. The patient was apparently already aware of this restriction from her prior passing-out episodes. 7. The patient should follow up with the neurologist in [place] she previously saw regarding these events. 8. Will follow with you. Thank you for allowing me to participate in the care of your patient. MMODL / IJN: [id number] /
[2018-09-09] MEDS: ONDANSETRON 4 MG/2 ML VIAL IVP PRN (22:37)
[2018-09-10 05:22] VITALS: BP 93/58; PULSE 64; RESP 16; TEMP 97.6
[2018-09-10] MEDS: PANTOPRAZOLE 40 MG TABLET PO SCH (08:20)
--- NOTE | 2018-09-10 08:34 | MR ---
EXAMINATION TYPE: MR brain wo/w con DATE OF EXAM: 09/10/2018 COMPARISON: Outside CT head 2 days ago. HISTORY: Syncope, headache TECHNIQUE: Multiplanar, multisequence images of the brain and brainstem is performed without and with IV contras t, utilizing 6 mL intravenous Gadavist . FINDINGS: Diffusion weighted images demonstrate no evidence of a recent infarct or other diffusion ab normality. There is no extra-axial fluid collection or significant white matter signal abnormality. The ventricular system and cisternal spaces are normal in size and appearance. The brain volume is age appropriate. Midline structures demonstrate normal morphology. The craniocervical junction appears within normal limits. Post contrast images demonstrate no abnormal enhancement. The dural venous sinuses appear pa tent. The visualized sinuses are clear and the globes are intact. No suspicious fluid signal is seen at level of mastoid air cells bilaterally. IMPRESSION: Unremarkable study.
--- NOTE | 2018-09-10 09:12 | PN ---
PROGRESS NOTE DATE OF SERVICE: 09/10/2018 I had the pleasure of re-evaluating the patient, who is sitting up in bed, pumping her breasts and discarding the milk. She currently denies headache, but states she did have an episode yesterday when up to go to the bathroom where she became lightheaded. She did not lose consciousness and was assisted back to bed. Apparently, telemetry overnight did demonstrate bradycardia into the low 40s. The patient states this lightheadedness was similar to what she has experienced with her spells 2 years ago, although did not have this prodrome with her recent events. CURRENT MEDICATIONS: Tylenol, Zofran p.r.n., Protonix. PHYSICAL EXAM: Upon arrival to the patient's room, she was sitting up in bed, receptive to the examiner. Affect is mildly flat. She is an accurate historian and appears of stated age. There are no family members at the bedside. VITAL SIGNS: Blood pressure is 93/58 with a pulse 64, respiratory rate 16, temperature 97.6. HIGHER CORTICAL FUNCTION: MENTAL STATUS: Patient was alert, oriented to time, place, and person. There was no aphasia or dysarthria. CRANIAL NERVES II THROUGH XII are intact. MOTOR EXAMINATION: No pronator drift. Normal bulk and tone are noted in all major muscle groups with no involuntary movements noted. Strength is 5 over 5 throughout. COORDINATION: Xqvthk-kt-ianl, kjsq-ee-kucn movements are intact. Rapid alternating movements are symmetric with finger tapping. DIAGNOSTIC TESTING: Patient had an MRI of the brain completed with and without contrast with radiology interpretation pending at the time of this dictation, although to my review, this study is unrevealing. CTA of the head/neck vessels was read as negative, in particular there was no significant stenosis, branch occlusions or vascular anomalies noted. EEG was normal. As discussed above per nursing staff, telemetry has demonstrated bradycardia into the low 40s, it is unclear if this correlated with her episode of lightheadedness last night. IMPRESSION: 1. Recurrent blackout episodes which have occurred over the past 2 years of unclear etiology. At this time, seizure is felt unlikely and are suspected to represent syncope/near syncope versus nonepileptic events. 2. Episode of lightheadedness last night while the patient was in the bathroom and telemetry has demonstrated bradycardia into the low 40s. 3. Depression, maintained on Zoloft. 4. Elevated transaminase levels, defer to your expertise. 5. Tobacco abuse. RECOMMENDATION: 1. I discussed my impression and results of diagnostic testing with the patient. In particular, MRI of the brain with and without contrast, CTA of the head/neck vessels and EEG were unrevealing, Formal MRI interpretation is pending at the time of this dictation. Urine test was negative. 2. Cardiac workup as felt clinically indicated per primary service, which may include tilt-table test and/or 30-day event monitor. 3. Will not initiate anticonvulsant medication or Topamax at this time. 4. No driving x6 months per [place] driving regulations. 5. The patient may be discharged from a neurologic standpoint when medically stable. Thank you for allowing me to participate in the care of your patient. MMODL / IJN: [id number] /
--- NOTE | 2018-09-10 10:30 | ECHOF ---
Referral Reason:syncope vs seizures MEASUREMENTS -------- HEIGHT: 157.5 cm WEIGHT: 27.7 kg BP: 95/61 RVIDd: 2.8 cm (< 3.3) IVSd: 0.9 cm (0.6 - 1.1) LVIDd: 3.7 cm (3.9 - 5.3) LVPWd: 0.8 cm (0.6 - 1.1) IVSs: 1.1 cm LVIDs: 2.6 cm LVPWs: 1.2 cm LA Diam: 2.8 cm (2.7 - 3.8) LAESV Index (A-L): 34.37 ml/m Ao Diam: 2.4 cm (2.0 - 3.7) AV Cusp: 1.8 cm (1.5 - 2.6) EPSS: 0.4 cm MV E Yasmani: 1.19 m/s MV DecT: 201 ms MV A Yasmani: 0.69 m/s MV E/A Ratio: 1.74 RAP: 5.00 mmHg RVSP: 26.64 mmHg MV EF SLOPE: 105.10 mm/s (70 - 150) MV EXCURSION: 0.82 cm (> 18.000) FINDINGS -------- Sinus rhythm. This was a technically excellent study. The left ventricular size is normal. Left ventricular wall thickness is normal. Overall left vent ricular systolic function is normal with, an EF between 60 - 65 %. The right ventricle is normal in size. Left atrium is mildly dilated by volume. The right atrium is normal in size and function. Interatrial and interventricular septum intact. The aortic valve is trileaflet and appears structurally normal. Mild mitral regurgitation is present. [id number] tricuspid regurgitation present. Right ventricular systolic pressure is normal at < 35 mmHg. There is no pulmonic regurgitation present. The aortic root size is normal. The inferior vena cava was not well visualized. The inferior vena cava is mildly dilated. There is no pericardial effusion. CONCLUSIONS -------- 1. Sinus rhythm. 2. This was a technically excellent study. 3. The left ventricular size is normal. 4. Left ventricular wall thickness is normal. 5. Overall left ventricular systolic function is normal with, an EF between 60 - 65 %. 6. The right ventricle is normal in size. 7. Left atrium is mildly dilated by volume. 8. The right atrium is normal in size and function. 9. Interatrial and interventricular septum intact. 10. The aortic valve is trileaflet and appears structurally normal. 11. Mild mitral regurgitation is present. 12. Aije-[id number] tricuspid regurgitation present. 13. Right ventricular systolic pressure is normal at < 35 mmHg. 14. There is no pulmonic regurgitation present. 15. The aortic root size is normal. 16. The inferior vena cava was not well visualized. 17. The inferior vena cava is mildly dilated. 18. There is no pericardial effusion. STORE RECEIVER: FAM Irwin
--- NOTE | 2018-09-10 15:51 | P.DS ---
Providers Date of admission: 09/08/18 18:58 Expected date of discharge: 09/10/18 Attending physician: Robi Funez Consults: 09/08/18 18:59 Consult Physician Routine Consulting Provider: Alvarado Gottlieb Reason/Comments: seizure? Do you want consulting provider notified?: Yes [facility] Course: Final diagnosis Possible syncope versus seizure Migraine without any migraine exacerbations Depression line nicotine abuse Mildly elevated liver enzymes Discharge disposition The patient is being discharged in a stable condition with guarded prognosis to home as her will be picking her up soon. Patient will be following up with her neurologist this week. Total time spent 30 minutes. Patient will not go home on any antiseizure or migraine medication at this time. History of present illness This is a 28-year-old female who was recently admitted with episodes of syncope that occurred 2 days ago. There is been no syncopal episodes since admission and denies any headache at this time. Patient underwent an EEG and MRI of the brain which were both negative studies. Discussed at length about migraine medication as the patient is currently still breast-feeding her 7-month-old daughter and that medication of Topamax is contraindicated. Patient agrees to follow up with neurology outpatient and discuss possible medications if she decides to stop breast-feeding. Discussed with the patient about the [place] laws regarding seizure activity and is instructed to refrain from driving for at least 6 months until medically cleared by neurology. Patient states that her is able to drive her and her mother and sister live close by and will be driving her to work. Patient denies any shortness of breath, chest pain, palpitations, headache, dizziness, lightheadedness, or any fevers at this time On exam vital signs are stable patient is sitting in bed in no acute distress. Cardio S1 and S2 are normal. Respiratory is clear to auscultation. Abdomen is soft and nontender. Nervous system shows no new focal deficits, gait is steady. Patient will continue her current home medications. Please refer to the medication reconciliation sheet for list of medications. Patient Condition at Discharge: Fair Plan - Discharge Summary Discharge Rx Participant: No New Discharge Prescriptions: Continue Pnv No.95/Ferrous Fum/Folic AC [ Multivitamin Tablet] 1 tab PO DAILY Sertraline [Zoloft] 50 mg PO DAILY Ascorbic Acid [Vitamin C] 1,000 mg PO DAILY Discharge Medication List Pnv No.95/Ferrous Fum/Folic AC [ Multivitamin Tablet] 1 tab PO DAILY 09/15/17 [History] Ascorbic Acid [Vitamin C] 1,000 mg PO DAILY 09/08/18 [History] Sertraline [Zoloft] 50 mg PO DAILY 09/08/18 [History] Follow up Appointment(s)/Referral(s): Viviana Solorzano MD [STAFF PHYSICIAN] - 10/06/18 3:00 pm Sebastián Ibrahim DO [Primary Care Provider] - 09/16/18 1:20 pm Patient Instructions/Handouts: Syncope (DC) Activity/Diet/Wound Care/Special Instructions: activity limited until follow-up Continue current medications follow up with neurology this week as discussed. May resume after 24 hours Discharge Disposition: HOME SELF-CARE
== END 2018-09-10 12:50 | disposition home or self-care (01) ==
LOC: EC 18:25 → 3NMEDONC 18:58
PROVIDERS: ADMIT Hospitalist; ATTEND Hospitalist
DX: R42 Dizziness and giddiness (principal); G43.109 Migraine with aura, not intractable, without status migrainosus; F32.9 Major depressive disorder, single episode, unspecified; F17.210 Nicotine dependence, cigarettes, uncomplicated; R74.0 Nonspecific elevation of levels of transaminase and lactic acid dehydrogenase [LDH]; Z86.14 Personal history of Methicillin resistant Staphylococcus aureus infection; Z86.69 Personal history of other diseases of the nervous system and sense organs; Z90.49 Acquired absence of other specified parts of digestive tract; Z79.899 Other long term (current) drug therapy; Z88.2 Allergy status to sulfonamides; Z82.49 Family history of ischemic heart disease and other diseases of the circulatory system
CPT/HCPCS: 96376; 96374; 99285; 95816; 93306; 93005; 80053; 83735; 85025; 81025; 70496; 70498; 70553; G0378 ×3; J2405 ×2; A9585; Q9967

== ENCOUNTER 2020-01-13 19:44 | Emergency (ER) | payer BC ==
[2020-01-13] MEDS ORDERED: KETOROLAC 15 MG/ML 1 ML VIAL IVP STA (20:26)
[2020-01-13] MEDS ORDERED: ONDANSETRON 4 MG/2 ML VIAL IVP STA (20:26)
[2020-01-13] MEDS ORDERED: SODIUM CHLORIDE 0.9% 1,000 ML IV STA (20:26)
[2020-01-13 20:42] LABS: Appearance,Urine Clear (Clear); Basophils # (A) 0.1 k/uL (0-0.2); Basophils % (A) 1 %; Bilirubin,Urine Negative (Negative); Blood,Urine Negative (Negative); Color,Urine Yellow; Eosinophils # (A) 0.5 k/uL (0-0.7); Eosinophils % (A) 6 %; Glucose,Urine (UA) Negative (Negative); HCT 42.8 % (34.0-46.0); HGB 14.7 gm/dL (11.4-16.0); Ketones,Urine Negative (Negative); Leukocyte Esterase,Urine Negative (Negative); Lymphocytes # (A) 2.7 k/uL (1.0-4.8); Lymphocytes % (A) 29 %; MCHC 34.2 g/dL (31.0-37.0); MCV 93.4 fL (80.0-100.0); Monocytes # (A) 0.6 k/uL (0-1.0); Monocytes % (A) 6 %; Neutrophils # (A) 5.3 k/uL (1.3-7.7); Neutrophils % (A) 57 %; Nitrite,Urine Negative (Negative); PH, Urine 6.5 (5.0-8.0); Platelet Count 224 k/uL (150-450); Protein,Urine Negative (Negative); RBC 4.59 m/uL (3.80-5.40); RDW 12.3 % (11.5-15.5); Specific Gravity,Urine 1.021 (1.001-1.035); Urobilinogen,Urine <2.0 mg/dL (<2.0); WBC 9.3 k/uL (3.8-10.6)
[2020-01-13 20:52] LABS: ALT 44 U/L (4-34); AST 32 U/L (14-36); African American GFR (CKD) >90 (>60 ml/min/1.73 sqM); Albumin 4.5 g/dL (3.5-5.0); Alkaline Phosphatase 74 U/L (38-126); Amylase 55 U/L (30-110); Anion Gap 7 mmol/L; Blood Urea Nitrogen 16 mg/dL (7-17); Calcium 9.4 mg/dL (8.4-10.2); Carbon Dioxide 24 mmol/L (22-30); Chloride 106 mmol/L (98-107); Glucose 98 mg/dL (74-99); Lipase 86 U/L (23-300); Non-African American GFR(CKD) >90 (>60 ml/min/1.73 sqM); Potassium 4.3 mmol/L (3.5-5.1); Sodium 137 mmol/L (137-145); Total Bilirubin 0.3 mg/dL (0.2-1.3); Total Protein 7.4 g/dL (6.3-8.2)
[2020-01-13 20:53] LABS: INR 0.9 (<1.2); Partial Thromboplastin Time 25.8 sec (22.0-30.0); Prothrombin Time 9.8 sec (9.0-12.0)
--- NOTE | 2020-01-13 21:40 | CT ---
EXAMINATION TYPE: CT abdomen pelvis w con DATE OF EXAM: 01/13/2020 COMPARISON: None HISTORY: Epigastric abdominal pain and diarrhea x3 weeks. CT DLP: 652.6 mGycm Automated exposure control for dose reduction was used. The lumbar vertebra have normal spacing and alignment. Posterior elements are intact. Bony pelvis is intact. Hip joints are intact. CONTRAST: Performed with IV Contrast, patient injected with 100ml mL of Isovue 300. Lung bases are clear. There is no pleural effusion. Heart size is normal. There is no pericardial eff usion. The liver spleen stomach pancreas gallbladder appear normal. Bile ducts are not dilated. Gallbladder is contracted. There is no adrenal mass. Kidneys show satisfactory contrast opacification. There is no hydronephrosi s. Ureters are not dilated. There is no retroperitoneal adenopathy. Bladder distends smoothly. Uterus is anteverted. There is IUD in the uterine fundus. There is no adnexal mass. There is no evidence of a pelvic mass. There is no mesenteric edema. There is no ascites or free air. There is no bowel obstruction. There a re clips apparently from appendectomy. Appendix is not seen. IMPRESSION: Negative CT scan abdomen and pelvis. No adverse change.
--- NOTE | 2020-01-13 21:58 | ED ---
Abdominal Pain HPI - General Chief Complaint: Abdominal Pain Stated Complaint: abdominal spasms Time Seen by Provider: 01/13/20 20:11 Source: patient Mode of arrival: ambulatory Limitations: no limitations - History of Present Illness Initial Comments: Patient is a 29-year-old female presenting to emergency Department with complaints of abdominal pain as well as intermittent diarrhea does been going on for 3 weeks. Patient states she has follow-up with her PCP regarding this and they did schedule a computed tomography scan of her abdomen for next week but she states that this evening the pain intensified and she wanted to be seen. Patient describes her pain as epigastric with some radiation of the right upper quadrant. She states she is not currently having diarrhea but states every few days she does get bouts of it for the last 3 weeks. They did try a course of Augmentin which did not seem to help. Does admit history of appendectomy, C- section, no other abdominal surgeries. She denies any fever, chills, vomiting. She does admit to some mild intermittent nausea. She denies being at this time secondary to IUD. She denies any urinary complaints. She has no further complaints at this time. Upon arrival to the ER, her vitals are stable. - Related Data Home Medications Medication Instructions Recorded Confirmed Rizatriptan Benzoate [Rizatriptan] 10 mg PO DAILY PRN 01/13/20 01/13/20 Sertraline HCl [Zoloft] 100 mg PO DAILY 01/13/20 01/13/20 Topiramate [Topamax] 50 mg PO BID 01/13/20 01/13/20 Allergies Allergy/AdvReac Type Severity Reaction Status Date / Time sulfamethoxazole Allergy Rash/Hives Verified 01/13/20 20:58 [From Bactrim] trimethoprim [From Bactrim] Allergy Rash/Hives Verified 01/13/20 20:58 Review of Systems ROS Statement: Those systems with pertinent positive or pertinent negative responses have been documented in the HPI. ROS Other: All systems not noted in ROS Statement are negative. Past Medical History Past Medical History: Seizure Disorder Additional Past Medical History / Comment(s): migraines, ovarian cysts rupture History of Any Multi-Drug Resistant Organisms: MRSA Date of last positivie culture/infection: 2012 MDRO Source:: bilateral inner thighs Past Surgical History: Appendectomy, Section Past Anesthesia/Blood Transfusion Reactions: No Reported Reaction Past Psychological History: Anxiety, Depression Smoking Status: Current every day smoker Past Alcohol Use History: Occasional Past Drug Use History: None Reported - Past Family History Mother Family Medical History: No Reported History General Exam - General Exam Comments Initial Comments: GENERAL: Patient is well-developed and well-nourished. Patient is nontoxic and in no acute distress. HEAD: Atraumatic, normocephalic. EYES: Pupils equal round and reactive to light, extraocular movements intact, sclera anicteric, conjunctiva are normal. Eyelids were unremarkable. ENT: TMs normal, nares patent, oropharynx clear without exudates. Moist mucous membranes. NECK: Normal range of motion, supple without lymphadenopathy or JVD. LUNGS: Unlabored respirations. Breath sounds clear to auscultation bilaterally and equal. No wheezes rales or rhonchi. HEART: Regular rate and rhythm without murmurs, rubs or gallops. ABDOMEN: Tender to palpation in epigastric, right upper quadrant. Soft, normoactive bowel sounds. No guarding, no rebound. No masses appreciated. : Deferred MUSCULOSKELETAL: Normal extremities with adequate strength and normal range of motion, no pitting or edema. No clubbing or cyanosis. NEUROLOGICAL: Patient is alert and oriented x 3. Motor and sensory are also intact. Cranial nerves II through XII grossly intact. Symmetrical smile. Normal speech, normal gait. PSYCH: Normal mood, normal affect. SKIN: Warm, Dry, normal turgor, no rashes or lesions noted. Limitations: no limitations Course Vital Signs 01/13/20 19:47 Temperature 98.5 F Pulse Rate 107 H Respiratory 18 Rate Blood Pressure 138/83 O2 Sat by Pulse 100 Oximetry Medical Decision Making - Medical Decision Making 29-year-old female here for epigastric to right upper quadrant pain has been intermittent for the last 3 weeks. Her vital signs are stable. Labs show no acute abnormality, lactic acid, lipase, bilirubin are all normal. Urine shows no evidence of infection, hCG is not detected. Computed tomography scan of the abdomen revealed no acute abnormality. Patient did receive fluids, pain control and has been comfortable the ER. I discussed these findings with her. She will continue to follow-up with her PCP, our also give her a surgical referral. She is in agreement that plan of care. Return parameters were discussed with the patient she verbalized understanding. Case discussed with Dr. Godinez. - Lab Data Result diagrams: 01/13/20 20:31 01/13/20 20:31 Lab Results 01/13/20 01/13/20 01/13/20 Range/Units 20:31 20:31 20:31 WBC 9.3 (3.8-10.6) k/uL RBC 4.59 (3.80-5.40) m/uL Hgb 14.7 (11.4-16.0) gm/dL Hct 42.8 (34.0-46.0) % MCV 93.4 (80.0-100.0) fL MCH 32.0 (25.0-35.0) pg MCHC 34.2 (31.0-37.0) g/dL RDW 12.3 (11.5-15.5) % Plt Count 224 (150-450) k/uL MPV 8.0 Neutrophils % 57 % Lymphocytes % 29 % Monocytes % 6 % Eosinophils % 6 % Basophils % 1 % Neutrophils # 5.3 (1.3-7.7) k/uL Lymphocytes # 2.7 (1.0-4.8) k/uL Monocytes # 0.6 (0-1.0) k/uL Eosinophils # 0.5 (0-0.7) k/uL Basophils # 0.1 (0-0.2) k/uL PT 9.8 (9.0-12.0) sec INR 0.9 (<1.2) APTT 25.8 (22.0-30.0) sec Sodium (137-145) mmol/L Potassium (3.5-5.1) mmol/L Chloride (98-107) mmol/L Carbon Dioxide (22-30) mmol/L Anion Gap mmol/L BUN (7-17) mg/dL Creatinine (0.52-1.04) mg/dL Est GFR (CKD-EPI)AfAm (>60 ml/min/1.73 sqM) Est GFR (CKD-EPI)NonAf (>60 ml/min/1.73 sqM) Glucose (74-99) mg/dL Plasma Lactic Acid Rishi (0.7-2.0) mmol/L Calcium (8.4-10.2) mg/dL Total Bilirubin (0.2-1.3) mg/dL AST (14-36) U/L ALT (4-34) U/L Alkaline Phosphatase (38-126) U/L Total Protein (6.3-8.2) g/dL Albumin (3.5-5.0) g/dL Amylase (30-110) U/L Lipase (23-300) U/L Urine Color Yellow Urine Appearance Clear (Clear) Urine pH 6.5 (5.0-8.0) Ur Specific [place] 1.021 (1.001-1.035) Urine Protein Negative (Negative) Urine Glucose (UA) Negative (Negative) Urine Ketones Negative (Negative) Urine Blood Negative (Negative) Urine Nitrite Negative (Negative) Urine Bilirubin Negative (Negative) Urine Urobilinogen <2.0 (<2.0) mg/dL Ur Leukocyte Esterase Negative (Negative) Urine HCG, Qual (Not Detectd) 01/13/20 01/13/20 01/13/20 Range/Units 20:31 20:31 20:31 WBC (3.8-10.6) k/uL RBC (3.80-5.40) m/uL Hgb (11.4-16.0) gm/dL Hct (34.0-46.0) % MCV (80.0-100.0) fL MCH (25.0-35.0) pg MCHC (31.0-37.0) g/dL RDW (11.5-15.5) % Plt Count (150-450) k/uL MPV Neutrophils % % Lymphocytes % % Monocytes % % Eosinophils % % Basophils % % Neutrophils # (1.3-7.7) k/uL Lymphocytes # (1.0-4.8) k/uL Monocytes # (0-1.0) k/uL Eosinophils # (0-0.7) k/uL Basophils # (0-0.2) k/uL PT (9.0-12.0) sec INR (<1.2) APTT (22.0-30.0) sec Sodium 137 (137-145) mmol/L Potassium 4.3 (3.5-5.1) mmol/L Chloride 106 (98-107) mmol/L Carbon Dioxide 24 (22-30) mmol/L Anion Gap 7 mmol/L BUN 16 (7-17) mg/dL Creatinine 0.78 (0.52-1.04) mg/dL Est GFR (CKD-EPI)AfAm >90 (>60 ml/min/1.73 sqM) Est GFR (CKD-EPI)NonAf >90 (>60 ml/min/1.73 sqM) Glucose 98 (74-99) mg/dL Plasma Lactic Acid Rishi 0.6 L (0.7-2.0) mmol/L Calcium 9.4 (8.4-10.2) mg/dL Total Bilirubin 0.3 (0.2-1.3) mg/dL AST 32 (14-36) U/L ALT 44 H (4-34) U/L Alkaline Phosphatase 74 (38-126) U/L Total Protein 7.4 (6.3-8.2) g/dL Albumin 4.5 (3.5-5.0) g/dL Amylase 55 (30-110) U/L Lipase 86 (23-300) U/L Urine Color Urine Appearance (Clear) Urine pH (5.0-8.0) Ur Specific [place] (1.001-1.035) Urine Protein (Negative) Urine Glucose (UA) (Negative) Urine Ketones (Negative) Urine Blood (Negative) Urine Nitrite (Negative) Urine Bilirubin (Negative) Urine Urobilinogen (<2.0) mg/dL Ur Leukocyte Esterase (Negative) Urine HCG, Qual Not Detected (Not Detectd) Disposition Clinical Impression: Pain of upper abdomen Disposition: HOME SELF-CARE Condition: Stable Instructions (If sedation given, give patient instructions): Abdominal Pain (ED) Additional Instructions: Please return to the Emergency Department if symptoms worsen or any other concerns. Follow-up with your PCP, possible with surgery as well. Is patient prescribed a controlled substance at d/c from ED?: No Referrals: Sebastián Ibrahim DO [Primary Care Provider] - 1-2 days Maia Woodson DO [Doctor of Osteopathic Medicine] - 1-2 days
[2020-01-14 00:22] VITALS: BP 123/73; PULSE 86; RESP 19; TEMP 98.4
== END 2020-01-13 22:17 | disposition home or self-care (01) ==
LOC: EC 19:44
DX: R10.11 Right upper quadrant pain (principal); R19.7 Diarrhea, unspecified; R11.0 Nausea; R10.13 Epigastric pain; Z32.02 Encounter for pregnancy test, result negative; G40.909 Epilepsy, unspecified, not intractable, without status epilepticus; F41.9 Anxiety disorder, unspecified; F32.9 Major depressive disorder, single episode, unspecified; F17.200 Nicotine dependence, unspecified, uncomplicated; Z79.899 Other long term (current) drug therapy; Z88.1 Allergy status to other antibiotic agents; Z88.2 Allergy status to sulfonamides; Z90.49 Acquired absence of other specified parts of digestive tract
CPT/HCPCS: 36415; 80053; 82150; 83605; 83690; 85025; 85610; 85730; 81003; 81025; 74177; 99284; 96374; 96375; 96361; J2405; J1885; Q9967

== ENCOUNTER → 2020-01-21 | Outpatient (CLI) | payer BC ==
--- NOTE | 2020-01-21 15:55 | NM ---
EXAMINATION TYPE: NM hepatobiliary w EF DATE OF EXAM: 01/21/2020 COMPARISON: NONE INDICATION: R 10.11, R 10.13 TECHNIQUE: After the intravenous administration of 4.69 mCi Tc 99m Mebrofenin hepatobiliary scintigra phy is performed. Images were obtained immediately post injection. FINDINGS: There is prompt uptake and excretion of radiotracer by the liver. Extrahepatic ducts are identified at 6 minutes. The gallbladder is visualized within 9 minutes. Small bowel activity is noted within 50 to minutes. At one hour gallbladder ejection fraction is calculated at 65 %, which is in the normal range. (Nor mal >35% and <80%.). IMPRESSION: 1. Normal hepatobiliary scan
== END | disposition home or self-care (01) ==
LOC: RADNMMAIN 06:47
PROVIDERS: ATTEND Physician Assistant
DX: R10.13 Epigastric pain (principal); R10.11 Right upper quadrant pain
CPT/HCPCS: 78226; A9537

== ENCOUNTER 2020-02-18 09:49 | Day surgery (SDC) | payer BC ==
[2020-02-16 14:30] VITALS: BMI 29.8
[~2020-02-18 09:49] MED LIST: LACTATED RINGERS 1,000 ML IV SCH
[2020-02-18 10:06] VITALS: TEMP 97.8
[2020-02-18] MEDS ORDERED: LACTATED RINGERS 1,000 ML IV ONE (10:14)
[2020-02-18] MEDS ORDERED: PROPOFOL 10 MG/ML 20 ML VIAL IV ONE (10:21)
--- NOTE | 2020-02-18 10:37 | P.PCN ---
Date of Procedure: 02/18/20 Preoperative Diagnosis: Epigastric Pain Postoperative Diagnosis: Gastritis Duodenitis Procedure(s) Performed: EGD with biopsy Anesthesia: AMAN Surgeon: Maia Woodson Pathology: other (Biopsy of duodenum, antrum, esophagus) Condition: stable Disposition: same day Indications for Procedure: 29-year-old female presented to the surgery clinic with complaints of epigastric pain. Concern was for biliary issue and HIDA scan and ultrasound were performed which were normal. Patient was also tried on Prilosec without significant success. Patient is a upper endoscopy plan for further evaluation. Risks, benefits and alternatives to the procedure were provided to the patient. She did provide consent prior to attending the endoscopy suite. Operative Findings: Gastritis Duodenitis Description of Procedure: The patient was brought into the endoscopy suite. She was then placed in left lateral decubitus position and adequate sedation was achieved using conscious sedation. A bite block was placed and an endoscope was placed in the oropharynx and advanced under endoscopic visualization. The endoscope was advanced through the esophagus into the stomach, through the gastric antrum and into the pylorus. The third portion of the duodenum was as. The endoscope was then slowly withdrawn. The first portion of duodenum was noted to have inflammatory changes. Biopsies were taken. The antrum was also noted to have inflammatory changes. Biopsies were taken. The gastric body distended normally and gastric folds appeared normal and flattened with insufflation. A retroflexed view the fundus and GE junction revealed no significant hiatal hernia. Esophagus appeared endoscopically normal. Biopsies were taken. Excess air was removed and the scope was withdrawn and the procedure was completed. The patient was then sent to postanesthesia care unit in stable condition.
[2020-02-18 11:07] VITALS: BP 104/874; PULSE 70; RESP 20
== END 2020-02-18 11:10 | disposition home or self-care (01) ==
LOC: ORWHC2ENDO 09:49
PROVIDERS: ATTEND Surgery
DX: K29.50 Unspecified chronic gastritis without bleeding (principal); K20.0 Eosinophilic esophagitis; K29.80 Duodenitis without bleeding; F32.9 Major depressive disorder, single episode, unspecified; G40.909 Epilepsy, unspecified, not intractable, without status epilepticus; G43.909 Migraine, unspecified, not intractable, without status migrainosus; F41.9 Anxiety disorder, unspecified; F17.210 Nicotine dependence, cigarettes, uncomplicated; N83.209 Unspecified ovarian cyst, unspecified side; Z79.899 Other long term (current) drug therapy; Z88.2 Allergy status to sulfonamides; Z90.49 Acquired absence of other specified parts of digestive tract; Z98.891 History of uterine scar from previous surgery; Z83.79 Family history of other diseases of the digestive system
CPT/HCPCS: 81025; 88305; 43239; J2704